=== PATIENT | female | born 1930 | race African-American/Black ===

== ENCOUNTER 2017-03-03 13:19 | Inpatient (IN) | payer BC, MEDICARE, OTHER ==
--- NOTE | 2017-03-03 14:26 | PDOC ---
History of Present Illness <Omar Nazario - Last Filed: 03/03/17 17:03> - General History Source: Patient Exam Limitations: No Limitations - History of Present Illness Initial Comments: 03/03/17 15:03 The patient is a 86 year old female, with a significant past medical history of hypertension, hyperlipidemia, diabetes, TIA, and GERD, who presents to the emergency department s/p mechanical fall earlier this afternoon. The patient reports she was in her kitchen when her knees gave out, and she landed on her right knee. Patient reports associated pain to the right knee and swelling. Patient states she is unable to stand on her leg secondary to pain. She denies any head trauma, LOC, headache, changes in vision, neck/back/hip pain. Patient reports a history of a right knee replacement. Patient is on a daily Aspirin. She denies any fever, chills, dizziness, lightheadedness, nausea, vomiting, changes in urination, or changes in bowel movements. She denies any recent travel or sick contacts. Allergies: NKDA Past Surgical History: Bilateral total knee replacements. Social History: Non smoker. No ETOH or recreational drug use. PCP: Dr. Youngblood <Aliya Kaur - Last Filed: 03/03/17 17:33> - General Chief Complaint: Injury Stated Complaint: FALL/LEG PAIN Time Seen by Provider: 03/03/17 14:25 Past History - Past Medical History Cardiac Disorders: Yes CVA: Yes ("TIAs") COPD: No CHF: No Diabetes: Yes (medications were discontinued by her primary care physician) GI Disorders: Yes (GERD) HTN: Yes Hypercholesterolemia: Yes - Surgical History Orthopedic Surgery: Yes (FRANCISCA.TOTAL KNEE PLACEMENT) - Immunization History Immunization Up to Date: Yes - Suicide/Smoking/Psychosocial Hx Smoking Status: No Smoking History: Smoker current status UNK Have you smoked in the past 12 months: No Number of Cigarettes Smoked Daily: 0 Hx Alcohol Use: No Drug/Substance Use Hx: No Substance Use Type: None <Omar Nazario - Last Filed: 03/03/17 17:03> <Aliya Kaur - Last Filed: 03/03/17 17:33> - Past Medical History Allergies/Adverse Reactions: Allergies Allergy/AdvReac Type Severity Reaction Status Date / Time No Known Allergies Allergy Verified 03/03/17 13:24 Home Medications: Ambulatory Orders Amlodipine Besylate 10 mg PO DAILY 03/03/17 Aspirin [Crystal Chewable] 81 mg PO DAILY 03/03/17 Furosemide 20 mg PO DAILY 03/03/17 Lisinopril [Prinivil -] 40 mg PO DAILY 03/03/17 Omeprazole 40 mg PO DAILY 03/03/17 Ranitidine [Zantac -] 150 mg PO BID 03/03/17 Review of Systems - Review of Systems Able to Perform ROS?: Yes Comments:: 03/03/17 15:03 GENERAL/CONSTITUTIONAL: No fever or chills. No weakness. HEAD, EYES, EARS, NOSE AND THROAT: No change in vision. No ear pain or discharge. No sore throat. CARDIOVASCULAR: No chest pain or shortness of breath. RESPIRATORY: No cough, wheezing, or hemoptysis. GASTROINTESTINAL: No nausea, vomiting, diarrhea or constipation. GENITOURINARY: No dysuria, frequency, or change in urination. MUSCULOSKELETAL: Yes right knee pain/swelling. No other joint or muscle swelling or pain. No neck or back pain. SKIN: No rash NEUROLOGIC: No headache, vertigo, loss of consciousness, or change in strength/ sensation. ENDOCRINE: No increased thirst. No abnormal weight change. HEMATOLOGIC/LYMPHATIC: No anemia, easy bleeding, or history of blood clots. ALLERGIC/IMMUNOLOGIC: No hives or skin allergy. <Aliya Kaur - Last Filed: 03/03/17 17:33> *Physical Exam - Vital Signs Last Vital Signs Temp Pulse Resp BP Pulse Ox 98.0 F 70 20 160/80 100 03/03/17 14:11 03/03/17 14:11 03/03/17 14:11 03/03/17 14:11 03/03/17 14:11 <Omar Nazario - Last Filed: 03/03/17 17:03> - Vital Signs Last Vital Signs Temp Pulse Resp BP Pulse Ox 98.0 F 70 20 160/80 100 03/03/17 14:11 03/03/17 14:11 03/03/17 14:11 03/03/17 14:11 03/03/17 14:11 - Physical Exam Comments: 03/03/17 15:04 GENERAL: Awake, alert, and fully oriented, in no acute distress HEAD: No signs of trauma EYES: PERRLA, EOMI, sclera anicteric, conjunctiva clear ENT: Auricles normal inspection, hearing grossly normal, nares patent, oropharynx clear without exudates. Moist mucosa NECK: Normal ROM, supple, no lymphadenopathy, JVD, or masses LUNGS: Breath sounds equal, clear to auscultation bilaterally. No wheezes, and no crackles HEART: Regular rate and rhythm, normal S1 and S2, no murmurs, rubs or gallops ABDOMEN: Soft, nontender, normoactive bowel sounds. No guarding, no rebound. No masses EXTREMITIES: Limited range of motion to right lower extremity secondary to pain. Moderate edema to the right knee. Normal range of motion and no edema to the remainder of the extremities. No clubbing or cyanosis. No cords, erythema, or tenderness NEUROLOGICAL: Cranial nerves II through XII grossly intact. Normal speech SKIN: Warm, Dry, normal turgor, no rashes or lesions noted. <Aliya Kaur - Last Filed: 03/03/17 17:33> Heart Score/ECG Review - ECG Intrepretation Comment:: 03/03/17 17:32 Vent Rate: 77 bpm IMPRESSION: Normal sinus rhythm. Nonspecific T wave abnormality. <Aliya Kaur - Last Filed: 03/03/17 17:33> ED Treatment Course - RADIOLOGY Radiograph Interpretation: 03/03/17 16:47 EXAM: Right femur/knee XR INTERPRETED BY: Dr. Moseley REVIEWED BY: Dr. Nazario IMPRESSION: Fractured distal femur at its junction with the knee prosthesias. X- ray of the right femur, 4 views. There is evidence of osteopenia. The right hip joint is intact. Fracture distal femur at the level of the superior margin of the anterior margin of the prosthesis with small bone fragments consistent with a comminuted fracture. There is significant posterior and medial displacement of the distal segment relative to the femoral shaft. On the lateral view, point of contact is less than half of the width of the distal femoral shaft. There is sigificant surrounding soft tissue swelling. Vascular calcifications are present in the right thigh. right knee replacement is seen <Aliya Kaur - Last Filed: 03/03/17 17:33> *DC/Admit/Observation/Transfer - Discharge Dispostion Admit: Yes - Attestations Physician Attestion: 12/04/17 14:26 I, Dr. Omar Nazario, attest that this document has been prepared under my direction and personally reviewed by me in its entirety. I further attest, that it accurately reflects all work, treatment, procedures and medical decision -making performed by me. <Omar Nazario - Last Filed: 03/03/17 17:03> - Attestations Scribe Attestion: 03/03/17 15:04 Documentation prepared by Aliya Kaur, acting as medical malpractice paralegal for Omar Nazario DO. <Aliya Kaur - Last Filed: 03/03/17 17:33> Diagnosis at time of Disposition: Knee fracture, right Atypical fracture of femur Qualifiers: Encounter type: initial encounter Qualified Code(s): M84.750A - Atypical femoral fracture, unspecified, initial encounter for fracture - Discharge Dispostion Condition at time of disposition: Improved - Patient Instructions - Post Discharge Activity
[2017-03-03] MEDS ORDERED: ONDANSETRON *ODT* 4 MG TABLET SL ONE (14:50)
[2017-03-03] MEDS ORDERED: ONDANSETRON *ODT* 4 MG TABLET ONE (15:16)
[2017-03-03 18:00] LABS: BASOPHIL 0.4 % (0-2.0); EOSINOPHIL 0.1 % (0-4.5); MCHC 32.9 g/dl (32.0-36.0); MEAN CELL VOLUME 88.1 fl (80-96); NEUTROPHILS 90.3 % (42.8-82.8); PLATELET COUNT 178 K/MM3 (134-434); RDW 16.6 % (11.6-15.6); WHITE BLOOD COUNT 7.5 K/mm3 (4.0-10.0)
[2017-03-03 20:20] LABS: ALBUMIN 3.6 g/dl (3.4-5.0); ANION GAP 7 (8-16); CALCIUM 8.5 mg/dL (8.5-10.1); CO2 26 mmol/L (21-32); CREATININE 2.2 mg/dL (0.55-1.02); GLUCOSE,RANDOM 136 mg/dL (74-106); SGOT/AST 12 U/L (15-37); TOT PROT 7.1 g/dl (6.4-8.2)
[2017-03-03 20:37] LABS: ALK PHOS 93 U/L (45-117); BILIRUBIN,TOTAL 0.2 mg/dL (0.2-1.0); SGPT/ALT 12 U/L (12-78)
--- NOTE | 2017-03-03 23:06 | HP ---
Admitting History and Physical - Primary Care Physician PCP: Love Arias - Admission History of Present Illness: 86 year old female, with a significant past medical history of hypertension, hyperlipidemia, diabetes, TIA, and GERD, who presents to the emergency department s/p mechanical fall earlier this afternoon. The patient reports she was in her kitchen when her knees gave out, and she landed on her right knee. Patient reports associated pain to the right knee and swelling. Patient states she is unable to stand on her leg secondary to pain. She denies any head trauma , LOC, headache, changes in vision, neck/back/hip pain. Patient reports a history of a right knee replacement. Patient is on a daily Aspirin. She denies any fever, chills, dizziness, lightheadedness, nausea, vomiting, changes in urination, or changes in bowel movements. She denies any recent travel or sick contacts. 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, Vertigo Cardiovascular: Yes: CAD, HTN, Hyperlipdemia Heme/Onc: Yes: B12 Deficiency Endocrine: Yes: Diabetes Mellitus - Smoking History Smoking history: Smoker current status UNK Have you smoked in the past 12 months: No Aproximately how many cigarettes per day: 0 - Alcohol/Substance Use Hx Alcohol Use: No - Social History ADL: Independent History of Recent Travel: No Home Medications - Allergies Allergies/Adverse Reactions: Allergies Allergy/AdvReac Type Severity Reaction Status Date / Time No Known Allergies Allergy Verified 03/03/17 13:24 - Home Medications Home Medications: Ambulatory Orders Amlodipine Besylate 10 mg PO DAILY 03/03/17 Aspirin [Crystal Chewable] 81 mg PO DAILY 03/03/17 Furosemide 20 mg PO DAILY 03/03/17 Lisinopril [Prinivil -] 40 mg PO DAILY 03/03/17 Omeprazole 40 mg PO DAILY 03/03/17 Ranitidine [Zantac -] 150 mg PO BID 03/03/17 Physical Examination Vital Signs: Vital Signs Temperature 98.0 F 03/03/17 19:20 Pulse Rate 88 03/03/17 19:20 Respiratory Rate 18 03/03/17 19:20 Blood Pressure 140/80 03/03/17 19:20 O2 Sat by Pulse Oximetry (%) 98 03/03/17 19:20 Constitutional: Yes: No Distress HENT: Yes: Atraumatic Neck: Yes: Supple Cardiovascular: Yes: Regular Rate and Rhythm Respiratory: Yes: CTA Bilaterally Gastrointestinal: Yes: Normal Bowel Sounds Neurological: Yes: Alert, Oriented Labs: CBC, BMP 03/03/17 17:44 03/03/17 19:31 Problem List - Problems (1) Atypical fracture of femur Assessment/Plan: ortho consult prn pain meds Code(s): M84.750A - ATYPICAL FEMORAL FRACTURE, UNSPECIFIED, INIT Qualifiers: Encounter type: initial encounter Qualified Code(s): M84.750A - Atypical femoral fracture, unspecified, initial encounter for fracture (2) Knee fracture, right Code(s): [id number] - Assessment/Plan Laboratory Tests 03/03/17 03/03/17 03/03/17 17:44 17:44 17:44 WBC 7.5 RBC 3.38 L Hgb 9.8 L Hct 29.8 L MCV 88.1 MCH 29.0 MCHC 32.9 RDW 16.6 H D Plt Count 178 D MPV 9.0 D Neutrophils % 90.3 H Lymphocytes % 5.4 L D Monocytes % 3.8 Eosinophils % 0.1 D Basophils % 0.4 PT with INR Cancelled INR Cancelled Sodium Cancelled Potassium Cancelled Chloride Cancelled Carbon Dioxide Cancelled Anion Gap Cancelled BUN Cancelled Creatinine Cancelled Creat Clearance w eGFR Cancelled Random Glucose Cancelled Calcium Cancelled Total Bilirubin Cancelled AST Cancelled ALT Cancelled Alkaline Phosphatase Cancelled Total Protein Cancelled Albumin Cancelled 03/03/17 19:31 WBC RBC Hgb Hct MCV MCH MCHC RDW Plt Count MPV Neutrophils % Lymphocytes % Monocytes % Eosinophils % Basophils % PT with INR INR Sodium 140 Potassium 4.9 Chloride 107 Carbon Dioxide 26 Anion Gap 7 L BUN 41 H Creatinine 2.2 H Creat Clearance w eGFR 21.26 Random Glucose 136 H Calcium 8.5 Total Bilirubin 0.2 D AST 12 L ALT 12 D Alkaline Phosphatase 93 D Total Protein 7.1 D Albumin 3.6 D Active Medications Generic Name Dose Route Start Last Admin Trade Name Freq PRN Reason Stop Dose Admin Amlodipine Besylate 10 mg 03/05/17 10:00 Norvasc - PO DAILY IGGY Aspirin 325 mg 03/05/17 08:00 Asa - PO DAILY@0800 IGGY Fentanyl 25 mcg 03/04/17 16:49 Sublimaze Injection - IVPUSH [id number] PRN PAIN Hydromorphone HCl 1 mg 03/04/17 17:08 Dilaudid Injection - IVPB Q3H PRN PAIN Cefazolin Sodium 1 gm in 10 mls @ 120 mls/hr 03/04/17 23:00 Ancef - IVPUSH 03/05/17 11:04 Q12H IGGY Lactated Ringer's 1,000 mls @ 75 mls/hr 03/04/17 17:00 Lactated Ringers Solution IV ASDIR IGGY Dextrose/Sodium Chloride 1,000 mls @ 75 mls/hr 03/04/17 17:08 D5-1/2ns - IV ASDIR IGGY Lisinopril 40 mg 03/05/17 10:00 Prinivil PO DAILY IGGY Ondansetron HCl 4 mg 03/04/17 16:49 Zofran Injection IVPUSH Q6H PRN NAUSEA AND/OR VOMITING Oxycodone HCl 5 mg 03/04/17 16:49 03/04/17 19:59 Roxicodone - PO 5 mg Q4H PRN Administration MILD PAIN
[2017-03-03] MEDS ORDERED: HYDROmorphone HCL CARPU-JECT 1 MG/1 ML DISP.SYRIN IVPB PRN (23:09)
[2017-03-03] MEDS ORDERED: DEXTROSE 5%-0.45% SALINE 1,000 ML IV SCH (23:15)
[2017-03-03] MEDS: HYDROmorphone HCL CARPU-JECT 2 MG/1 ML DISP.SYRIN IVPB PRN (23:44)
[2017-03-04 00:26] VITALS: BMI 26.9
[2017-03-04] MEDS: HYDROmorphone HCL CARPU-JECT 2 MG/1 ML DISP.SYRIN IVPB PRN (05:37)
--- NOTE | 2017-03-04 08:21 | PN ---
Progress Note (short form) - Note Progress Note: Pt seen and examined. She is an 86 year old female pt about 15 years s/p Right TKR, and 2 days s/p fall. She was unable to ambulate. Came in through the ER. PE RLE in knee immobilizer + mod swelling around R knee No open component, no bleeding RLE grossly NVI + F/E ROM right toes, foot, ankle Xrays Show a very distal femoral periprosthetic femur fracture Imp 86 yo F with a right distal femur periprosthetic fracture Rec Medical clearance, Cardiac clearance NPO To the OR today for a right knee revision TKR, by Dr Topete
[2017-03-04] MEDS ORDERED: HEPARIN NA (PORCINE) 5,000 UNITS/ML 1ML VIAL SQ SCH (10:00)
[2017-03-04] MEDS ORDERED: ASPIRIN 81 MG CHEWABLE TABLETS PO SCH (10:00)
[2017-03-04] MEDS ORDERED: amLODIPine BESYLATE 10 MG TABLET (FP) PO SCH (10:00)
[2017-03-04] MEDS ORDERED: LISINOPRIL 20 MG TABLET (FP) PO SCH (10:00)
--- NOTE | 2017-03-04 11:57 | CON.CARD ---
Consult Consult Specialty:: Cardiology Referred by:: Dr. Arias Reason for Consultation:: Cardiac evaluation and for cardiac clearance prior to orthopedic surgery - History of Present Illness Chief Complaint: Status post fall resulting in batool-prosthetic femoral fracture (right) History of Present Illness: Patient is an 86 year old female with underlying history of hypertension, hypercholesterolemia, diabetes mellitus, TIA and GERD who presents after a mechanical fall resulting in right batool-prosthetic femoral fracture. She denies LOC. she was in her kitchen and when she tried to turn, her knees gave out and she fell resulting in the injury. 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 She denies chest pain, shortness of breath or palpitations. She denies paroxysmal nocturnal dyspnea or orthopnea. She denies fever or chills. She denies headache or lightheadedness. She denies nausea, vomiting, diarrhea or abdominal pain. Cardiology consultation was called for further evaluation and for cardiac clearance. 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, Vertigo Cardio/Vascular: Yes: CAD, HTN, Hyperlipdemia Endocrine: Yes: Diabetes Mellitus - Past Surgical History Past Surgical History: Yes: Joint Replacement (Bilateral knee surgery) Additional Surgical History: States neurosurgery for aneurysm in the past - Alcohol/Substance Use Hx Alcohol Use: No - Smoking History Smoking history: Never smoked Have you smoked in the past 12 months: No Aproximately how many cigarettes per day: 0 - Social History ADL: Independent History of Recent Travel: No Home Medications - Allergies Allergies/Adverse Reactions: Allergies Allergy/AdvReac Type Severity Reaction Status Date / Time No Known Allergies Allergy Verified 03/03/17 13:24 - Home Medications Home Medications: Ambulatory Orders Amlodipine Besylate 10 mg PO DAILY 03/03/17 Aspirin [Crystal Chewable] 81 mg PO DAILY 03/03/17 Furosemide 20 mg PO DAILY 03/03/17 Lisinopril [Prinivil -] 40 mg PO DAILY 03/03/17 Omeprazole 40 mg PO DAILY 03/03/17 Ranitidine [Zantac -] 150 mg PO BID 03/03/17 Family Disease History - Family Disease History Other Family History: History of HTN and DM Review of Systems - Review of Systems Constitutional: denies: Chills, Fever Cardiovascular: denies: Chest Pain, Palpitations, Shortness of Breath Respiratory: denies: Cough, Hemoptysis, Orthopnea, PND, SOB, SOB on Exertion Gastrointestinal: denies: Abdominal Pain, Constipation, Diarrhea, Melena, Nausea , Rectal Bleeding, Vomiting Genitourinary: denies: Dysuria, Hematuria Musculoskeletal: reports: Joint Pain, Joint Swelling Neurological: denies: Dizziness, Headache, Seizure, Syncope Psychiatric: reports: No Symptoms Vital Signs: Vital Signs Temperature 99.3 F 03/04/17 05:43 Pulse Rate 83 03/04/17 05:43 Respiratory Rate 21 03/04/17 05:43 Blood Pressure 118/69 03/04/17 05:43 O2 Sat by Pulse Oximetry (%) 98 03/03/17 19:20 Neck: Yes: Supple Respiratory: Yes: CTA Bilaterally Gastrointestinal: Yes: Normal Bowel Sounds, Soft. No: Tenderness Cardiovascular: Yes: Regular Rate and Rhythm JVD: No Carotid Bruit: No PMI: Non-Displaced Heart Sounds: Yes: S1, S2. No: Gallop Murmur: Yes: Systolic Murmur, Grade 1 Extremities: Yes: Erythema Edema: No - Other Data Labs, Other Data: CBC, BMP 03/03/17 17:44 03/03/17 19:31 Laboratory Results - last 24 hr 03/03/17 03/03/17 03/03/17 17:44 17:44 17:44 WBC 7.5 RBC 3.38 L Hgb 9.8 L Hct 29.8 L MCV 88.1 MCH 29.0 MCHC 32.9 RDW 16.6 H D Plt Count 178 D MPV 9.0 D Neutrophils % 90.3 H Lymphocytes % 5.4 L D Monocytes % 3.8 Eosinophils % 0.1 D Basophils % 0.4 PT with INR Cancelled INR Cancelled Sodium Cancelled Potassium Cancelled Chloride Cancelled Carbon Dioxide Cancelled Anion Gap Cancelled BUN Cancelled Creatinine Cancelled Creat Clearance w eGFR Cancelled Random Glucose Cancelled Calcium Cancelled Total Bilirubin Cancelled AST Cancelled ALT Cancelled Alkaline Phosphatase Cancelled Total Protein Cancelled Albumin Cancelled 03/03/17 19:31 WBC RBC Hgb Hct MCV MCH MCHC RDW Plt Count MPV Neutrophils % Lymphocytes % Monocytes % Eosinophils % Basophils % PT with INR INR Sodium 140 Potassium 4.9 Chloride 107 Carbon Dioxide 26 Anion Gap 7 L BUN 41 H Creatinine 2.2 H Creat Clearance w eGFR 21.26 Random Glucose 136 H Calcium 8.5 Total Bilirubin 0.2 D AST 12 L ALT 12 D Alkaline Phosphatase 93 D Total Protein 7.1 D Albumin 3.6 D Normal sinus rhythm with nonspecific T abnormality Echo: Pending Imaging - Results Chest X-ray: Report Reviewed (Cardiomegaly) X-ray: Report Reviewed (Hip Xray - right distal femur batool-prosthetic fracture) EKG: Report Reviewed Problem List - Problems (1) Preoperative cardiovascular examination Code(s): Z01.810 - ENCOUNTER FOR PREPROCEDURAL CARDIOVASCULAR EXAMINATION (2) HTN (hypertension) Code(s): I10 - ESSENTIAL (PRIMARY) HYPERTENSION Qualifiers: Hypertension type: essential hypertension Qualified Code(s): I10 - Essential (primary) hypertension (3) Hypercholesterolemia Code(s): E78.00 - PURE HYPERCHOLESTEROLEMIA, UNSPECIFIED (4) Diabetes mellitus Code(s): E11.9 - TYPE 2 DIABETES MELLITUS WITHOUT COMPLICATIONS Qualifiers: Diabetes mellitus type: type 2 Diabetes mellitus complication status: without complication Diabetes mellitus terminal worker insulin use: without skilled nursing use Qualified Code(s): E11.9 - Type 2 diabetes mellitus without complications (5) Atypical fracture of femur Code(s): M84.750A - ATYPICAL FEMORAL FRACTURE, UNSPECIFIED, INIT Qualifiers: Encounter type: initial encounter Qualified Code(s): M84.750A - Atypical femoral fracture, unspecified, initial encounter for fracture (6) TIA (transient ischemic attack) Code(s): G45.9 - TRANSIENT CEREBRAL ISCHEMIC ATTACK, UNSPECIFIED Qualifiers: Transient cerebral ischemia type: unspecified Qualified Code(s): G45.9 - Transient cerebral ischemic attack, unspecified Assessment/Plan 1. Batool-prosthetic femoral fracture s/p mechanical fall, no LOC 2. Hypertension 3. Hypercholesterolemia 4. Diabetes mellitus 5. Cerebrovascular disease PLAN: 1. Transthoracic echocardiography to assess LV/RV and valvular function ( preliminary reviewed normal LV systolic function, presence of TR and aortic valve sclerosis) Official report to follow 2. Patient may proceed with planned hip surgery. There is no absolute contraindication in proceeding with surgery in view of absence of ischemic symptoms, decompensated congestive heart failure or malignant arrhythmia. Post op cardiac enzuymes and ECG recommended 3. Hold ASA until after surgery 4. Continue Amlodipine and Prinivil as tolerated Thank you for the consultation. Will follow with you. Further plans are to follow Jamil Bhardwaj MD
[2017-03-04] MEDS ORDERED: ceFAZolin SODIUM 1 GM VIAL ONE ×2 (13:15→14:40)
[2017-03-04] MEDS ORDERED: BUPIVACAINE LIPOSOME/PF (EXPAREL) 266 MG/20 ML VIAL NR ONE ×2 (13:30→17:08)
[2017-03-04] MEDS ORDERED: BUPIVACAINE HCL/PF 0.25% (2.5MG/ML) 10 ML VIAL ONE (13:47)
[2017-03-04] MEDS ORDERED: MIDAZOLAM HCL 2 MG/2 ML SINGLE DOSE VIAL ONE ×3 (13:51→13:53)
[2017-03-04 14:14] LABS: INR 1.05 (0.82-1.09); PROTHROMBIN TIME (PATIENT) 11.9 SEC (9.98-11.88)
[2017-03-04] MEDS ORDERED: BUPIVACAINE HCL/PF 0.5% (5MG/ML) 10 ML VIAL ONE (14:16)
[2017-03-04] MEDS ORDERED: ceFAZolin SODIUM 1 GM VIAL IVPB ONE (14:36)
[2017-03-04] MEDS ORDERED: VANCOMYCIN 1,000 MG VIAL (RESTRICTED TO ID ONLY) ONE (15:54)
--- NOTE | 2017-03-04 16:32 | OP ---
Operative Note - Note: Operative Date: 03/04/17 ([facility]) Pre-Operative Diagnosis: right periprosthetic distal femur fx Operation: right revision TKR Post-Operative Diagnosis: Same as Pre-op Surgeon: Steve Topete Box Feeder: Ace Logan Anesthesiologist/LICSW: Yuliet Sanford MD Anesthesia: Spinal, Local Specimens Removed: femur and tibial component, bone fragments Estimated Blood Loss (mls): 300 Operative Report Dictated: Yes
[2017-03-04] MEDS ORDERED: ONDANSETRON 4 MG/2 ML VIAL IVPUSH PRN (16:49)
[2017-03-04] MEDS ORDERED: LACTATED RINGERS SOLUTION 1,000 ML IV SCH (17:00)
[2017-03-04] MEDS ORDERED: DEXTROSE 5%-0.45% SALINE 1,000 ML IV SCH (17:08)
[2017-03-04] MEDS ORDERED: HYDROmorphone HCL CARPU-JECT 2 MG/1 ML DISP.SYRIN IVPB PRN (17:08)
[2017-03-04] MEDS: oxyCODONE HCL 5 MG TABLET PO PRN (19:59)
--- NOTE | 2017-03-04 20:52 | PN ---
Progress Note, Physician History of Present Illness: feeling good - Current Medication List Current Medications: Active Medications Amlodipine Besylate (Norvasc -) 10 mg PO DAILY [facility] Aspirin (Asa -) 325 mg PO DAILY@0800 [facility] Fentanyl (Sublimaze Injection -) 25 mcg IVPUSH [id number] PRN PRN Reason: PAIN Hydromorphone HCl (Dilaudid Injection -) 1 mg IVPB Q3H PRN PRN Reason: PAIN Cefazolin Sodium (Ancef -) 1 gm in 10 mls @ 120 mls/hr IVPUSH Q12H [facility] Stop: 03/05/17 11:04 Lactated Ringer's (Lactated Ringers Solution) 1,000 mls @ 75 mls/hr IV ASDIR [facility] Dextrose/Sodium Chloride (D5-1/2ns -) 1,000 mls @ 75 mls/hr IV ASDIR [facility] Lisinopril (Prinivil) 40 mg PO DAILY [facility] Ondansetron HCl (Zofran Injection) 4 mg IVPUSH Q6H PRN PRN Reason: NAUSEA AND/OR VOMITING Oxycodone HCl (Roxicodone -) 5 mg PO Q4H PRN PRN Reason: MILD PAIN Last Admin: 03/04/17 19:59 Dose: 5 mg - Objective Vital Signs: Vital Signs Temperature 98.4 F 03/04/17 18:47 Pulse Rate 78 03/04/17 18:47 Respiratory Rate 20 03/04/17 20:33 Blood Pressure 133/69 03/04/17 18:47 O2 Sat by Pulse Oximetry (%) 100 03/04/17 20:33 Constitutional: Yes: Calm HENT: Yes: Atraumatic Neck: Yes: Supple Cardiovascular: Yes: Regular Rate and Rhythm Respiratory: Yes: CTA Bilaterally Gastrointestinal: Yes: Normal Bowel Sounds Extremities: Yes: Other (rlex in dressing) Edema: RLE: 1+ Neurological: Yes: Alert, Oriented Labs: CBC, BMP 03/03/17 17:44 03/03/17 19:31 INR, PTT INR 1.05 (0.82-1.09) 03/04/17 13:30 Problem List - Problems (1) Atypical fracture of femur Assessment/Plan: ortho consult prn pain meds s/p surgery snf placement Code(s): M84.750A - ATYPICAL FEMORAL FRACTURE, UNSPECIFIED, INIT Qualifiers: Encounter type: subsequent encounter (2) Knee fracture, right Code(s): [id number] -
[2017-03-04] MEDS ORDERED: CEFAZOLIN 2 GM in DEXTROSE 5%-WATER - 50 ML IVPB SCH (23:00)
[2017-03-04] MEDS: CEFAZOLIN 1 GM PUSH 1 GM/10 ML DISP.SYRIN IVPUSH SCH (23:27)
[2017-03-05] MEDS: oxyCODONE HCL 5 MG TABLET PO PRN ×3 (05:14→14:29)
--- NOTE | 2017-03-05 07:53 | EKG ---
Test Reason : Blood Pressure : / mmHG Vent. Rate : 077 BPM Atrial Rate : 077 BPM P-R Int : 154 ms QRS Dur : 088 ms QT Int : 376 ms P-R-T Axes : -23 046 059 degrees QTc Int : 425 ms NORMAL SINUS RHYTHM NONSPECIFIC T WAVE ABNORMALITY ABNORMAL ECG WHEN COMPARED WITH ECG OF 03-MAR-2017 14:19, NO SIGNIFICANT CHANGE WAS FOUND Confirmed by MD Marte Daniel ([id number]) on 03/04/2017 2:53:39 PM Also confirmed by MD Marte Daniel ([id number]), news video editor NICANOR AMATO ([id number]) on 03/05/2017 7:53:12 AM Referred By: Confirmed By:Nicanor Marte MD
[2017-03-05] MEDS ORDERED: ASPIRIN 325 MG TABLET PO SCH (08:00)
[2017-03-05 08:18] LABS: BASOPHIL 0.2 % (0-2.0); EOSINOPHIL 0.9 % (0-4.5); MCH 28.9 pg (25.7-33.7); MCHC 33.3 g/dl (32.0-36.0); MEAN CELL VOLUME 86.9 fl (80-96); MEAN PLT VOLUME 8.6 fl (7.5-11.1); NEUTROPHILS 87.5 % (42.8-82.8); PLATELET COUNT 94 K/MM3 (134-434); RDW 16.2 % (11.6-15.6); WHITE BLOOD COUNT 11.4 K/mm3 (4.0-10.0)
[2017-03-05 08:31] LABS: ALBUMIN 2.4 g/dl (3.4-5.0); ANION GAP 9 (8-16); CALCIUM 7.9 mg/dL (8.5-10.1); CO2 22 mmol/L (21-32); GLUCOSE,RANDOM 134 mg/dL (74-106); SGPT/ALT 9 U/L (12-78)
[2017-03-05 08:37] LABS: ALK PHOS 58 U/L (45-117); BILIRUBIN,TOTAL 0.6 mg/dL (0.2-1.0); CREATININE 2.2 mg/dL (0.55-1.02); SGOT/AST 10 U/L (15-37); TOT PROT 5.1 g/dl (6.4-8.2)
--- NOTE | 2017-03-05 10:02 | PN ---
Progress Note (short form) - Note Progress Note: AVSS COMFORTABLE BANDAGES DRY AND INTACT CALF SOFT AND NT NVI HCT= 21 IMP DOING WELL BUT LOW HCT DUE TO POST OP ANEMIA PLAN: TRANSFUSE 2 UNITS PRBCS EACH OVER 3 HOURS, PT
[2017-03-05] MEDS ORDERED: PT OWN MED DRAWER 7, Y5N ONE ×2 (10:10→14:38)
[2017-03-05] MEDS: ASPIRIN 325 MG TABLET PO SCH (10:12)
[2017-03-05] MEDS: amLODIPine BESYLATE 10 MG TABLET (FP) PO SCH (10:13)
[2017-03-05] MEDS: LISINOPRIL 20 MG TABLET (FP) PO SCH (10:13)
[2017-03-05] MEDS: CEFAZOLIN 1 GM PUSH 1 GM/10 ML DISP.SYRIN IVPUSH SCH (10:58)
--- NOTE | 2017-03-05 12:56 | PN ---
Progress Note, Physician History of Present Illness: Reports post-op incisional discomfort, denies chest pain or dyspnea. - Current Medication List Current Medications: Active Medications Amlodipine Besylate (Norvasc -) 10 mg PO DAILY [facility] Last Admin: 03/05/17 10:13 Dose: 10 mg Aspirin (Asa -) 325 mg PO DAILY@0800 [facility] Last Admin: 03/05/17 10:12 Dose: 325 mg Fentanyl (Sublimaze Injection -) 25 mcg IVPUSH [id number] PRN PRN Reason: PAIN Hydromorphone HCl (Dilaudid Injection -) 1 mg IVPB Q3H PRN PRN Reason: PAIN Lactated Ringer's (Lactated Ringers Solution) 1,000 mls @ 75 mls/hr IV ASDIR [facility] Dextrose/Sodium Chloride (D5-1/2ns -) 1,000 mls @ 75 mls/hr IV ASDIR [facility] Last Admin: 03/04/17 22:00 Dose: 75 mls/hr Lisinopril (Prinivil) 40 mg PO DAILY [facility] Last Admin: 03/05/17 10:13 Dose: 40 mg Ondansetron HCl (Zofran Injection) 4 mg IVPUSH Q6H PRN PRN Reason: NAUSEA AND/OR VOMITING Oxycodone HCl (Roxicodone -) 5 mg PO Q4H PRN PRN Reason: MILD PAIN Last Admin: 03/05/17 10:21 Dose: 5 mg - Objective Vital Signs: Vital Signs Temperature 100.3 F H 03/05/17 05:48 Pulse Rate 87 03/05/17 05:48 Respiratory Rate 18 03/05/17 05:48 Blood Pressure 113/64 03/05/17 05:48 O2 Sat by Pulse Oximetry (%) 100 03/04/17 20:33 Constitutional: Yes: No Distress, Calm Neck: Yes: Supple Cardiovascular: Yes: Regular Rate and Rhythm, Murmur (2/6 SM) Respiratory: Yes: Regular, Diminished Gastrointestinal: Yes: Normal Bowel Sounds, Soft Edema: No Labs: CBC, BMP 03/05/17 07:40 03/05/17 07:40 INR, PTT INR 1.05 (0.82-1.09) 03/04/17 13:30 Problem List - Problems (1) Status post revision of total knee replacement Code(s): Z96.659 - PRESENCE OF UNSPECIFIED ARTIFICIAL KNEE JOINT Qualifiers: Laterality: right Qualified Code(s): Z96.651 - Presence of right artificial knee joint (2) Atypical fracture of femur Code(s): M84.750A - ATYPICAL FEMORAL FRACTURE, UNSPECIFIED, INIT Qualifiers: Encounter type: subsequent encounter (3) Diabetes mellitus Code(s): E11.9 - TYPE 2 DIABETES MELLITUS WITHOUT COMPLICATIONS Qualifiers: Diabetes mellitus type: type 2 Diabetes mellitus complication status: without complication Diabetes mellitus roasterman insulin use: without roasterman use Qualified Code(s): E11.9 - Type 2 diabetes mellitus without complications (4) HTN (hypertension) Code(s): I10 - ESSENTIAL (PRIMARY) HYPERTENSION Qualifiers: Hypertension type: essential hypertension Qualified Code(s): I10 - Essential (primary) hypertension (5) Hypercholesterolemia Code(s): E78.00 - PURE HYPERCHOLESTEROLEMIA, UNSPECIFIED (6) TIA (transient ischemic attack) Code(s): G45.9 - TRANSIENT CEREBRAL ISCHEMIC ATTACK, UNSPECIFIED Qualifiers: Transient cerebral ischemia type: unspecified Qualified Code(s): G45.9 - Transient cerebral ischemic attack, unspecified (7) Chronic kidney disease (CKD) Code(s): N18.9 - CHRONIC KIDNEY DISEASE, UNSPECIFIED (8) Anemia Code(s): D64.9 - ANEMIA, UNSPECIFIED Qualifiers: Other causes of anemia: acute posthemorrhagic Assessment/Plan 1. Right Periprosthetic distal femoral fracture s/p mechanical fall s/p right revision TKR 2. Hypertension 3. Hypercholesterolemia 4. Diabetes mellitus 5. Cerebrovascular disease 6. Post-op anemia 7. CKD PLAN: 1. Transthoracic echocardiography to assess LV/RV and valvular function ( preliminary reviewed normal LV systolic function, presence of TR and aortic valve sclerosis) Official report to follow 2. Transfuse and monitor Hgb 3. Continue Amlodipine 10 qd, Prinivil 40 qd and ASA 325 qd with caution 4. DVT prophylaxis
--- NOTE | 2017-03-05 13:27 | OP ---
DATE OF OPERATION: 03/04/2017 PREOPERATIVE DIAGNOSIS: Comminuted distal supracondylar femur fracture above a total knee replacement. POSTOPERATIVE DIAGNOSIS: Comminuted distal supracondylar femur fracture above a total knee replacement. PROCEDURE: Revision right total knee replacement with a distal femoral replacement. SURGICAL ATTENDING: Steve Topete MD ADVERTISING EXECUTIVE: ELISABET Menchaca ANESTHESIA: Spinal. CLOSURE: A GRMS system from [employer] with a standard body, a standard tibial tray with a 16 insert, No. 1 Vicryl to fascia, 0 and 2-0 for subcutaneous, vernell for skin. ESTIMATED BLOOD LOSS: 200 mL. COMPLICATIONS: None. CONDITION: To recovery room in stable condition. DESCRIPTION OF PROCEDURE: The patient was taken to the operating room on March 04, 2017. Spinal anesthesia was administered by the anesthesiologist. IV Keflex was administered prophylactically prior to the case as well as TXA. A well-padded pneumatic tourniquet was placed on the right proximal thigh. The right lower extremity was prepped and draped in the usual sterile fashion. The leg was exsanguinated with an Esmarch bandage. The tourniquet was then inflated to 300 mmHg. Utilizing the previous incision beginning more proximally and distally, the knee was opened down to the level of the extensor mechanism, which was sufficient to allow me to perform the procedure. Medial parapatellar arthrotomy was then performed leaving a cuff of tissue on the patella for later closure. The patella was inverted, and the knee was flexed up. The total knee replacement femoral component was completely loose using subperiosteal dissection. The entire distal femur was removed. There were lots of comminuted fragments throughout. Each one was individually grabbed with a [place]ia and then was periosteally dissected from the soft tissue. The distal femur was osteotomized to the lowest level possible getting rid of the entire fracture and fracture cracks in the femoral shaft. The intramedullary canal was reamed up until a 17 reamer. It was decided to use a 15 intramedullary felipe. A trial reduction with a 15 felipe and a standard body achieved good soft tissue tensioning. Next, our attention was directed to the tibia. Osteotomes were used right underneath the tibial base plate freeing it up from its underlying bone and then the entire tibial tray was extracted from the tibial bone. A saw was used to freshened up the residual bone. Intramedullary reaming was reamed until an 18 reamer passed a trial with a standard tray with a 16 intramedullary reamer was placed with appropriate external rotation. A trial reduction with 16 polyethylene was performed. Excellent soft tissue tensioning. The knee was taken through a range of motion. Had excellent excursion. The patella was cleaned but was found to be not worn and was left in situ as it was stable as well. The patella tracked well with the trial components. The trial components were all removed. Cement restrictors were placed up and down the canals. The knee was post antibiotic irrigated. The real components were then cemented using modern generation cement technique with antibiotic cement and the appropriate external rotation. After the cement was hardened, the knee was thoroughly inspected to remove all excess cement. The polyethylene was clipped in it as were the hinge pieces, and the knee was assembled. Again, knee went through a full range of motion with good stability and good tracking of the patella. The knee was post antibiotic irrigated and then dried. Vancomycin powder was placed into the knee joint. The medial parapatellar incision was then closed using No. 1 Vicryl, 0 and 2-0 for subcutaneous, 3-0 Monocryl subcuticular, and skin glue for skin. Sterile pressure dressing was applied. The patient was awakened from anesthesia and transferred to the recovery room in stable condition with no complications. Ben [id number]
--- NOTE | 2017-03-05 15:43 | PN ---
Progress Note, Physician Chief Complaint: Pt. pain controlled with adductor canal block and oral meds, no anesthesia complaints. - Current Medication List Current Medications: Active Medications Amlodipine Besylate (Norvasc -) 10 mg PO DAILY [facility] Last Admin: 03/05/17 10:13 Dose: 10 mg Aspirin (Asa -) 325 mg PO DAILY@0800 [facility] Last Admin: 03/05/17 10:12 Dose: 325 mg Fentanyl (Sublimaze Injection -) 25 mcg IVPUSH [id number] PRN PRN Reason: PAIN Hydromorphone HCl (Dilaudid Injection -) 1 mg IVPB Q3H PRN PRN Reason: PAIN Lactated Ringer's (Lactated Ringers Solution) 1,000 mls @ 75 mls/hr IV ASDIR [facility] Dextrose/Sodium Chloride (D5-1/2ns -) 1,000 mls @ 75 mls/hr IV ASDIR [facility] Last Admin: 03/04/17 22:00 Dose: 75 mls/hr Lisinopril (Prinivil) 40 mg PO DAILY [facility] Last Admin: 03/05/17 10:13 Dose: 40 mg Ondansetron HCl (Zofran Injection) 4 mg IVPUSH Q6H PRN PRN Reason: NAUSEA AND/OR VOMITING Oxycodone HCl (Roxicodone -) 5 mg PO Q4H PRN PRN Reason: MILD PAIN Last Admin: 03/05/17 14:29 Dose: 5 mg - Objective Vital Signs: Vital Signs Temperature 98.9 F 03/05/17 14:00 Pulse Rate 82 03/05/17 09:00 Respiratory Rate 18 03/05/17 09:00 Blood Pressure 122/82 03/05/17 09:00 O2 Sat by Pulse Oximetry (%) 100 03/04/17 20:33 Constitutional: Yes: Well Nourished, No Distress, Calm Musculoskeletal: Yes: WNL Neurological: Yes: WNL, Alert, Oriented ...Motor Strength: WNL Labs: CBC, BMP 03/05/17 07:40 03/05/17 07:40 INR, PTT INR 1.05 (0.82-1.09) 03/04/17 13:30 Assessment/Plan POD#1 s/p Right TKA under spinal with adductor canal block. Doing well. D/C from anesthesia care.
--- NOTE | 2017-03-05 18:59 | PN ---
Progress Note, Physician History of Present Illness: feeling good - Current Medication List Current Medications: Active Medications Amlodipine Besylate (Norvasc -) 10 mg PO DAILY [facility] Last Admin: 03/05/17 10:13 Dose: 10 mg Aspirin (Asa -) 325 mg PO DAILY@0800 [facility] Last Admin: 03/05/17 10:12 Dose: 325 mg Fentanyl (Sublimaze Injection -) 25 mcg IVPUSH [id number] PRN PRN Reason: PAIN Hydromorphone HCl (Dilaudid Injection -) 1 mg IVPB Q3H PRN PRN Reason: PAIN Lactated Ringer's (Lactated Ringers Solution) 1,000 mls @ 75 mls/hr IV ASDIR [facility] Dextrose/Sodium Chloride (D5-1/2ns -) 1,000 mls @ 75 mls/hr IV ASDIR [facility] Last Admin: 03/04/17 22:00 Dose: 75 mls/hr Lisinopril (Prinivil) 40 mg PO DAILY [facility] Last Admin: 03/05/17 10:13 Dose: 40 mg Ondansetron HCl (Zofran Injection) 4 mg IVPUSH Q6H PRN PRN Reason: NAUSEA AND/OR VOMITING Oxycodone HCl (Roxicodone -) 5 mg PO Q4H PRN PRN Reason: MILD PAIN Last Admin: 03/05/17 14:29 Dose: 5 mg - Objective Vital Signs: Vital Signs Temperature 98.9 F 03/05/17 14:00 Pulse Rate 82 03/05/17 09:00 Respiratory Rate 18 03/05/17 09:00 Blood Pressure 122/82 03/05/17 09:00 O2 Sat by Pulse Oximetry (%) 100 03/04/17 20:33 Constitutional: Yes: No Distress HENT: Yes: Atraumatic Cardiovascular: Yes: Regular Rate and Rhythm Respiratory: Yes: CTA Bilaterally Gastrointestinal: Yes: Normal Bowel Sounds Extremities: Yes: Other (rlex in dressing/cast) Neurological: Yes: Alert, Oriented Labs: CBC, BMP 03/05/17 07:40 03/05/17 07:40 INR, PTT INR 1.05 (0.82-1.09) 03/04/17 13:30 Problem List - Problems (1) Atypical fracture of femur Assessment/Plan: ortho consult prn pain meds s/p surgery snf placement Code(s): M84.750A - ATYPICAL FEMORAL FRACTURE, UNSPECIFIED, INIT Qualifiers: Encounter type: subsequent encounter (2) Knee fracture, right Code(s): [id number] - (3) Leukocytosis (leucocytosis) Assessment/Plan: will check ua could be post surgical elevation Code(s): D72.829 - ELEVATED WHITE BLOOD CELL COUNT, UNSPECIFIED (4) Chronic kidney disease (CKD) Code(s): N18.9 - CHRONIC KIDNEY DISEASE, UNSPECIFIED (5) Diabetes mellitus Code(s): E11.9 - TYPE 2 DIABETES MELLITUS WITHOUT COMPLICATIONS Qualifiers: Diabetes mellitus type: type 2 Diabetes mellitus complication status: without complication Diabetes mellitus intermediate school teacher insulin use: without intermediate school teacher use Qualified Code(s): E11.9 - Type 2 diabetes mellitus without complications (6) HTN (hypertension) Code(s): I10 - ESSENTIAL (PRIMARY) HYPERTENSION Qualifiers: Hypertension type: essential hypertension Qualified Code(s): I10 - Essential (primary) hypertension (7) Hypercholesterolemia Code(s): E78.00 - PURE HYPERCHOLESTEROLEMIA, UNSPECIFIED
[2017-03-06] MEDS: oxyCODONE HCL 5 MG TABLET PO PRN (05:40)
[2017-03-06 08:28] LABS: MCH 27.7 pg (25.7-33.7); MCHC 32.9 g/dl (32.0-36.0); MEAN CELL VOLUME 84.3 fl (80-96); MEAN PLT VOLUME 8.6 fl (7.5-11.1); PLATELET COUNT 90 K/MM3 (134-434); RDW 16.9 % (11.6-15.6); WHITE BLOOD COUNT 16.6 K/mm3 (4.0-10.0)
--- NOTE | 2017-03-06 10:01 | PN ---
Progress Note (short form) - Note Progress Note: Ortho Pt seen and examined s/p right revision TKR pod #2, received 2 units of PRBCs Selected Entries 03/06/17 08:00 Temperature 97.8 F Pulse Rate 85 Respiratory 18 Rate Blood Pressure 124/70 Laboratory Tests 03/06/17 07:45 WBC 16.6 H D Hgb 8.2 L D Hct 24.9 L D Plt Count 90 L dressing c/d/i, calf soft, nt rom 0-40, nvi a/p PT dvt ppx pain control july d/c from ortho pov
[2017-03-06] MEDS: LISINOPRIL 20 MG TABLET (FP) PO SCH (10:22)
[2017-03-06] MEDS: amLODIPine BESYLATE 10 MG TABLET (FP) PO SCH (10:23)
[2017-03-06] MEDS: ASPIRIN 325 MG TABLET PO SCH (10:23)
--- NOTE | 2017-03-06 11:24 | PN ---
Progress Note, Physician Chief Complaint: Not in distress History of Present Illness: Patient was seen and examined. Awake and alert. Chart was reviewed Denies chest pain, SOB or palpitations - Current Medication List Current Medications: Active Medications Acetaminophen (Tylenol -) 650 mg PO Q6H PRN PRN Reason: FEVER OR PAIN Amlodipine Besylate (Norvasc -) 10 mg PO DAILY [facility] Last Admin: 03/06/17 10:23 Dose: 10 mg Aspirin (Asa -) 325 mg PO DAILY@0800 [facility] Last Admin: 03/06/17 10:23 Dose: 325 mg Fentanyl (Sublimaze Injection -) 25 mcg IVPUSH [id number] PRN PRN Reason: PAIN Hydromorphone HCl (Dilaudid Injection -) 1 mg IVPB Q3H PRN PRN Reason: PAIN Lisinopril (Prinivil) 40 mg PO DAILY [facility] Last Admin: 03/06/17 10:22 Dose: 40 mg Ondansetron HCl (Zofran Injection) 4 mg IVPUSH Q6H PRN PRN Reason: NAUSEA AND/OR VOMITING Oxycodone HCl (Roxicodone -) 5 mg PO Q4H PRN PRN Reason: MILD PAIN Last Admin: 03/06/17 05:40 Dose: 5 mg - Objective Vital Signs: Vital Signs Temperature 97.8 F 03/06/17 08:00 Pulse Rate 76 03/06/17 09:56 Respiratory Rate 18 03/06/17 08:00 Blood Pressure 124/70 03/06/17 08:00 O2 Sat by Pulse Oximetry (%) 98 03/06/17 09:56 Eyes: Yes: PERRL HENT: Yes: Atraumatic Neck: Yes: Supple Cardiovascular: Yes: Regular Rate and Rhythm, Murmur (Soft SM), S1, S2 Respiratory: Yes: CTA Bilaterally Gastrointestinal: Yes: Normal Bowel Sounds, Soft. No: Tenderness Edema: No Labs: CBC, BMP 03/06/17 07:45 03/05/17 07:40 Problem List - Problems (1) Preoperative cardiovascular examination Code(s): Z01.810 - ENCOUNTER FOR PREPROCEDURAL CARDIOVASCULAR EXAMINATION (2) HTN (hypertension) Code(s): I10 - ESSENTIAL (PRIMARY) HYPERTENSION Qualifiers: Hypertension type: essential hypertension Qualified Code(s): I10 - Essential (primary) hypertension (3) Hypercholesterolemia Code(s): E78.00 - PURE HYPERCHOLESTEROLEMIA, UNSPECIFIED (4) Diabetes mellitus Code(s): E11.9 - TYPE 2 DIABETES MELLITUS WITHOUT COMPLICATIONS Qualifiers: Diabetes mellitus type: type 2 Diabetes mellitus complication status: without complication Diabetes mellitus long-term insulin use: without exterminator helper termite use Qualified Code(s): E11.9 - Type 2 diabetes mellitus without complications (5) Atypical fracture of femur Code(s): M84.750A - ATYPICAL FEMORAL FRACTURE, UNSPECIFIED, INIT Qualifiers: Encounter type: subsequent encounter (6) TIA (transient ischemic attack) Code(s): G45.9 - TRANSIENT CEREBRAL ISCHEMIC ATTACK, UNSPECIFIED Qualifiers: Transient cerebral ischemia type: unspecified Qualified Code(s): G45.9 - Transient cerebral ischemic attack, unspecified Assessment/Plan 1. Dinora-prosthetic femoral fracture s/p mechanical fall post surgery 2. Hypertension 3. Hypercholesterolemia 4. Diabetes mellitus 5. Cerebrovascular disease PLAN: 1. Continue Amlodipine and Prinivil as tolerated 2. Post operative follow up. Continue PT and eventually rehab (short term) 3. Resume ASA as tolerated - resume 81 mg once a day instead of 325 mg 4. Analgesics as needed Further plans are to follow Jamil Bhardwaj MD
--- NOTE | 2017-03-06 11:40 | EKG ---
Test Reason : Blood Pressure : / mmHG Vent. Rate : 074 BPM Atrial Rate : 074 BPM P-R Int : 176 ms QRS Dur : 072 ms QT Int : 396 ms P-R-T Axes : 054 055 075 degrees QTc Int : 439 ms POOR DATA QUALITY, INTERPRETATION MAY BE ADVERSELY AFFECTED NORMAL SINUS RHYTHM NORMAL ECG WHEN COMPARED WITH ECG OF 01-MAY-2015 19:51, NON-SPECIFIC CHANGE IN ST SEGMENT IN ANTERIOR LEADS Confirmed by GOPI JIMENEZ MD ([id number]) on 03/06/2017 11:40:45 AM Referred By: Confirmed By:GOPI JIMENEZ MD
--- NOTE | 2017-03-06 14:42 | PATH ---
Surgical Pathology Report Patient Name: KEN CHUNG [facility]. Rec. #: [id number] /Age/Gender: 1930 (Age: 86) / F Account: [id number] Location: [address] [place] [address] Taken: 03/05/2017 Received: 03/05/2017 Reported: 03/06/2017 Physicians: Ben العراقي M.D. Specimen(s) Received OLD RIGHT KNEE IMPLANT Clinical History Old right knee implant Final Diagnosis KNEE, BONE AND IMPLANT, REMOVAL: BONE WITH INTERSTITIAL HEMORRHAGE. SURGICAL HARDWARE. MACROSCOPIC DIAGNOSIS. Electronically Signed Beth Morocho M.D. Gross Description Received in formalin labeled "old right knee implant," are 2 smith metallic portions of hardware measuring 7.6 and 7.2 cm in greatest dimension, consistent with a knee implant. The specimens display attached hemorrhagic bone. Vehicle Washer sections of the bone are submitted in one cassette, following decalcification. /03/05/201703/05/2017
[2017-03-06] MEDS: SODIUM CHLORIDE 1,000 ML IV SCH (17:03)
[2017-03-06] MEDS ORDERED: CEFTRIAXONE 1 GM in DEXTROSE 5%-WATER - 100 ML IVPB SCH (20:15)
[2017-03-06] MEDS ORDERED: DOCUSATE NA 100 MG/10 ML UNIT-DOSE CUPS PO PRN (20:22)
--- NOTE | 2017-03-06 20:22 | PN ---
Progress Note, Physician History of Present Illness: feeling good - Current Medication List Current Medications: Active Medications Acetaminophen (Tylenol -) 650 mg PO Q6H PRN PRN Reason: FEVER OR PAIN Amlodipine Besylate (Norvasc -) 10 mg PO DAILY [facility] Last Admin: 03/06/17 10:23 Dose: 10 mg Aspirin (Asa -) 325 mg PO DAILY@0800 [facility] Last Admin: 03/06/17 10:23 Dose: 325 mg Fentanyl (Sublimaze Injection -) 25 mcg IVPUSH [id number] PRN PRN Reason: PAIN Hydromorphone HCl (Dilaudid Injection -) 1 mg IVPB Q3H PRN PRN Reason: PAIN Sodium Chloride (Normal Saline -) 1,000 mls @ 75 mls/hr IV ASDIR [facility] Last Admin: 03/06/17 17:03 Dose: 75 mls/hr CEFTRIAXONE 1 G/50 ML PREMIX (Ceftriaxone 1 Gm-D5w Bag) 50 mls @ 100 mls/hr IVPB DAILY [facility] Lisinopril (Prinivil) 40 mg PO DAILY [facility] Last Admin: 03/06/17 10:22 Dose: 40 mg Ondansetron HCl (Zofran Injection) 4 mg IVPUSH Q6H PRN PRN Reason: NAUSEA AND/OR VOMITING Oxycodone HCl (Roxicodone -) 5 mg PO Q4H PRN PRN Reason: MILD PAIN Last Admin: 03/06/17 05:40 Dose: 5 mg - Objective Vital Signs: Vital Signs Temperature 99.2 F 03/06/17 18:00 Pulse Rate 88 03/06/17 18:00 Respiratory Rate 20 03/06/17 18:00 Blood Pressure 127/67 03/06/17 18:00 O2 Sat by Pulse Oximetry (%) 98 03/06/17 09:56 Constitutional: Yes: No Distress HENT: Yes: Atraumatic Neck: Yes: Supple Cardiovascular: Yes: Regular Rate and Rhythm Respiratory: Yes: CTA Bilaterally Gastrointestinal: Yes: Normal Bowel Sounds Extremities: Yes: Other (rlex s/p surgery) Neurological: Yes: Alert Labs: CBC, BMP 03/06/17 07:45 03/05/17 07:40 INR, PTT INR 1.05 (0.82-1.09) 03/04/17 13:30 Problem List - Problems (1) Atypical fracture of femur Assessment/Plan: ortho consult prn pain meds s/p surgery snf placement Code(s): M84.750A - ATYPICAL FEMORAL FRACTURE, UNSPECIFIED, INIT Qualifiers: Encounter type: subsequent encounter (2) Knee fracture, right Code(s): [id number] - (3) Leukocytosis (leucocytosis) Assessment/Plan: will check ua could be post surgical elevation will start emperic abx Code(s): D72.829 - ELEVATED WHITE BLOOD CELL COUNT, UNSPECIFIED (4) Chronic kidney disease (CKD) Code(s): N18.9 - CHRONIC KIDNEY DISEASE, UNSPECIFIED (5) Diabetes mellitus Code(s): E11.9 - TYPE 2 DIABETES MELLITUS WITHOUT COMPLICATIONS Qualifiers: Diabetes mellitus type: type 2 Diabetes mellitus complication status: without complication Diabetes mellitus care home insulin use: without local 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
[2017-03-06] MEDS: CEFTRIAXONE 1 G/50 ML PREMIX 50 ML IVPB SCH (21:24)
[2017-03-06 22:02] LABS: URINE APPEARANCE CLOUDY; URINE BILIRUBIN NEGATIVE (NEGATIVE); URINE BLOOD 1+ (NEGATIVE); URINE COLOR YELLOW; URINE GLUCOSE (UA) NEGATIVE (NEGATIVE); URINE KETONE NEGATIVE (NEGATIVE); URINE NITRITE NEGATIVE (NEGATIVE); URINE UROBILINOGEN NEGATIVE mg/dL (0.2-1.0)
[2017-03-06 22:25] LABS: URINE LEUK ESTERASE 3+ (NEGATIVE); URINE PROTEIN 2+ (NEGATIVE)
[2017-03-06 22:31] LABS: URINE BACTERIA RARE /hpf (NONE SEEN); URINE MUCUS RARE; URINE RBC 2 /hpf (0-3); URINE WBC 210 /hpf (3-5)
[2017-03-07] MEDS: ACETAMINOPHEN 325 MG TABLET (FP) PO PRN (00:40)
[2017-03-07] MEDS: SODIUM CHLORIDE 1,000 ML IV SCH ×2 (05:56→21:11)
[2017-03-07 09:16] LABS: BASOPHIL 0.5 % (0-2.0); EOSINOPHIL 2.3 % (0-4.5); MCH 28.1 pg (25.7-33.7); MCHC 32.9 g/dl (32.0-36.0); MEAN CELL VOLUME 85.6 fl (80-96); MEAN PLT VOLUME 9.1 fl (7.5-11.1); PLATELET COUNT 102 K/MM3 (134-434); RDW 17.7 % (11.6-15.6); WHITE BLOOD COUNT 14.4 K/mm3 (4.0-10.0)
[2017-03-07] MEDS: ASPIRIN 325 MG TABLET PO SCH (09:25)
[2017-03-07] MEDS: LISINOPRIL 20 MG TABLET (FP) PO SCH (09:25)
[2017-03-07] MEDS: amLODIPine BESYLATE 10 MG TABLET (FP) PO SCH (09:25)
[2017-03-07] MEDS: CEFTRIAXONE 1 G/50 ML PREMIX 50 ML IVPB SCH (09:25)
--- NOTE | 2017-03-07 09:42 | CON.ID ---
Consult Consult Specialty:: Infectious Disease Reason for Consultation:: fever/leukocytosis - History of Present Illness History of Present Illness: This is an 86 y.o. female with PMH of DM, HTN, HLD, TIA, GERD, b/l TKR admitted after a mechanical fall at home. The states that she landed on her Rt knee and developed pain and swelling. She normally uses a walker to ambulate at home where she lives alone. 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 She denied having any fever, chills, dizziness, shortness of breath, cough, CP, abd pain/n/v/d, or dysuria at the time of her fall. Pt found to have a Rt batool-prosthetic distal femoral fracture for which she underwent revision and distal femoral replacement on 12/. on POD #1 she developed a fever of 101.5F and then had leukocytosis with the wbc trending up to 16.6K. She was started empirically on Ceftriaxone and currently has a decrease in wbc and Tmax of 100F. She denies having any specific complaints. - Past Medical History POLE SHAVER: Yes: CVA, Peripheral Neuropathy, Vertigo Cardio/Vascular: Yes: CAD, HTN, Hyperlipdemia Endocrine: Yes: Diabetes Mellitus - Past Surgical History Past Surgical History: Yes: Hysterectomy, Joint Replacement (Bilateral knee surgery) Additional Surgical History: States neurosurgery for aneurysm in the past - Alcohol/Substance Use Hx Alcohol Use: No - Smoking History Smoking history: Smoker current status UNK Have you smoked in the past 12 months: No Aproximately how many cigarettes per day: 0 - Social History ADL: Independent History of Recent Travel: No Home Medications - Allergies Allergies/Adverse Reactions: Allergies Allergy/AdvReac Type Severity Reaction Status Date / Time No Known Allergies Allergy Verified 03/03/17 13:24 - Home Medications Home Medications: Ambulatory Orders Amlodipine Besylate 10 mg PO DAILY 03/03/17 Aspirin [Crystal Chewable Aspirin] 81 mg PO DAILY 03/03/17 Furosemide 20 mg PO DAILY 03/03/17 Lisinopril [Prinivil -] 40 mg PO DAILY 03/03/17 Omeprazole 40 mg PO DAILY 03/03/17 Ranitidine [Zantac -] 150 mg PO BID 03/03/17 Family Disease History - Family Disease History Other Family History: History of HTN and DM Review of Systems - Review of Systems Constitutional: reports: No Symptoms Eyes: reports: No Symptoms HENT: reports: No Symptoms Neck: reports: No Symptoms Cardiovascular: reports: No Symptoms Respiratory: reports: No Symptoms Gastrointestinal: reports: No Symptoms Genitourinary: reports: No Symptoms Breasts: reports: No Symptoms Reported Musculoskeletal: reports: Joint Pain (appropriate level of post-op pain) Integumentary: reports: No Symptoms Neurological: reports: No Symptoms Endocrine: reports: No Symptoms Hematology/Lymphatic: reports: No Symptoms Psychiatric: reports: No Symptoms Physical Exam Vital Signs: Vital Signs Temperature 98.6 F 03/07/17 05:54 Pulse Rate 89 03/07/17 05:54 Respiratory Rate 20 03/07/17 05:54 Blood Pressure 115/66 03/07/17 05:54 O2 Sat by Pulse Oximetry (%) 96 03/06/17 20:55 Constitutional: Yes: No Distress, Calm HENT: Yes: Atraumatic Neck: Yes: Supple Cardiovascular: Yes: Regular Rate and Rhythm Respiratory: Yes: CTA Bilaterally Gastrointestinal: Yes: Normal Bowel Sounds, Soft Renal/: Yes: WNL Musculoskeletal: Yes: Other (Rt knee dressing in place) Extremities: Yes: WNL Integumentary: Yes: WNL Wound/Incision: Yes: Dressing Dry and Intact Neurological: Yes: Alert, Oriented Psychiatric: Yes: Alert Labs: CBC, BMP 03/07/17 08:00 Blood and Urine cultures pending Problem List - Problems (1) Chronic kidney disease (CKD) Code(s): N18.9 - CHRONIC KIDNEY DISEASE, UNSPECIFIED (2) Diabetes mellitus Code(s): E11.9 - TYPE 2 DIABETES MELLITUS WITHOUT COMPLICATIONS Qualifiers: Diabetes mellitus type: type 2 Diabetes mellitus complication status: without complication Diabetes mellitus intermediate teacher insulin use: without skilled nursing use Qualified Code(s): E11.9 - Type 2 diabetes mellitus without complications (3) HTN (hypertension) Code(s): I10 - ESSENTIAL (PRIMARY) HYPERTENSION Qualifiers: Hypertension type: essential hypertension Qualified Code(s): I10 - Essential (primary) hypertension (4) Knee fracture, right Code(s): [id number] - (5) Leukocytosis (leucocytosis) Code(s): D72.829 - ELEVATED WHITE BLOOD CELL COUNT, UNSPECIFIED (6) Status post revision of total knee replacement Code(s): Z96.659 - PRESENCE OF UNSPECIFIED ARTIFICIAL KNEE JOINT Qualifiers: Laterality: right Qualified Code(s): Z96.651 - Presence of right artificial knee joint (7) TIA (transient ischemic attack) Code(s): G45.9 - TRANSIENT CEREBRAL ISCHEMIC ATTACK, UNSPECIFIED Qualifiers: Transient cerebral ischemia type: unspecified Qualified Code(s): G45.9 - Transient cerebral ischemic attack, unspecified Assessment/Plan s/p revision of Rt TKR/femoral replacement Leukocytosis Fever Possible UTI - continue Ceftriaxone empirically - f/u blood/urine culture results - monitor wbc, temp pt currently stable
[2017-03-07 09:47] LABS: CALCIUM 7.4 mg/dL (8.5-10.1); CO2 18 mmol/L (21-32); CREATININE 2.2 mg/dL (0.55-1.02); GLUCOSE,RANDOM 71 mg/dL (74-106)
[2017-03-07 09:51] LABS: ANION GAP 8 (8-16)
--- NOTE | 2017-03-07 11:44 | PN ---
Progress Note, Physician History of Present Illness: Low grade fevers and improving leukocytosis. Tolerated PT, post-op pain adequately controlled. - Current Medication List Current Medications: Active Medications Acetaminophen (Tylenol -) 650 mg PO Q6H PRN PRN Reason: FEVER OR PAIN Last Admin: 03/07/17 00:40 Dose: 650 mg Amlodipine Besylate (Norvasc -) 10 mg PO DAILY [facility] Last Admin: 03/07/17 09:25 Dose: 10 mg Aspirin (Asa -) 325 mg PO DAILY@0800 [facility] Last Admin: 03/07/17 09:25 Dose: 325 mg Docusate Sodium (Colace Liquid -) 100 mg PO DAILY PRN PRN Reason: CONSTIPATION Hydromorphone HCl (Dilaudid Injection -) 1 mg IVPB Q3H PRN PRN Reason: PAIN Sodium Chloride (Normal Saline -) 1,000 mls @ 75 mls/hr IV ASDIR [facility] Last Admin: 03/07/17 05:56 Dose: 75 mls/hr CEFTRIAXONE 1 G/50 ML PREMIX (Ceftriaxone 1 Gm-D5w Bag) 50 mls @ 100 mls/hr IVPB DAILY [facility] Last Admin: 03/07/17 09:25 Dose: 100 mls/hr Lisinopril (Prinivil) 40 mg PO DAILY [facility] Last Admin: 03/07/17 09:25 Dose: 40 mg Ondansetron HCl (Zofran Injection) 4 mg IVPUSH Q6H PRN PRN Reason: NAUSEA AND/OR VOMITING Oxycodone HCl (Roxicodone -) 5 mg PO Q4H PRN PRN Reason: MILD PAIN Last Admin: 03/06/17 05:40 Dose: 5 mg - Objective Vital Signs: Vital Signs Temperature 98.2 F 03/07/17 09:00 Pulse Rate 91 H 03/07/17 09:00 Respiratory Rate 18 03/07/17 09:00 Blood Pressure 135/92 03/07/17 09:00 O2 Sat by Pulse Oximetry (%) 98 03/07/17 09:00 Constitutional: Yes: No Distress, Calm Neck: Yes: Supple Cardiovascular: Yes: Regular Rate and Rhythm Respiratory: Yes: Regular, Diminished Gastrointestinal: Yes: Normal Bowel Sounds, Soft Edema: No Labs: CBC, BMP 03/07/17 08:00 03/07/17 08:00 INR, PTT INR 1.05 (0.82-1.09) 03/04/17 13:30 Problem List - Problems (1) Status post revision of total knee replacement Code(s): Z96.659 - PRESENCE OF UNSPECIFIED ARTIFICIAL KNEE JOINT Qualifiers: Laterality: right Qualified Code(s): Z96.651 - Presence of right artificial knee joint (2) Atypical fracture of femur Code(s): M84.750A - ATYPICAL FEMORAL FRACTURE, UNSPECIFIED, INIT Qualifiers: Encounter type: subsequent encounter (3) Diabetes mellitus Code(s): E11.9 - TYPE 2 DIABETES MELLITUS WITHOUT COMPLICATIONS Qualifiers: Diabetes mellitus type: type 2 Diabetes mellitus complication status: without complication Diabetes mellitus assistant terminal manager insulin use: without residential use Qualified Code(s): E11.9 - Type 2 diabetes mellitus without complications (4) HTN (hypertension) Code(s): I10 - ESSENTIAL (PRIMARY) HYPERTENSION Qualifiers: Hypertension type: essential hypertension Qualified Code(s): I10 - Essential (primary) hypertension (5) Hypercholesterolemia Code(s): E78.00 - PURE HYPERCHOLESTEROLEMIA, UNSPECIFIED (6) TIA (transient ischemic attack) Code(s): G45.9 - TRANSIENT CEREBRAL ISCHEMIC ATTACK, UNSPECIFIED Qualifiers: Transient cerebral ischemia type: unspecified Qualified Code(s): G45.9 - Transient cerebral ischemic attack, unspecified (7) Chronic kidney disease (CKD) Code(s): N18.9 - CHRONIC KIDNEY DISEASE, UNSPECIFIED (8) Anemia Code(s): D64.9 - ANEMIA, UNSPECIFIED Qualifiers: Other causes of anemia: acute posthemorrhagic (9) UTI (urinary tract infection) Code(s): N39.0 - URINARY TRACT INFECTION, SITE NOT SPECIFIED Qualifiers: Urinary tract infection type: site unspecified Hematuria presence: without hematuria Qualified Code(s): N39.0 - Urinary tract infection, site not specified (10) Leukocytosis (leucocytosis) Code(s): D72.829 - ELEVATED WHITE BLOOD CELL COUNT, UNSPECIFIED Qualifiers: Leukocytosis type: unspecified Qualified Code(s): D72.829 - Elevated white blood cell count, unspecified Assessment/Plan 1. Dinora-prosthetic femoral fracture s/p s/p revision of Rt TKR 2. Hypertension 3. Hypercholesterolemia 4. Diabetes mellitus 5. Cerebrovascular disease 6. Possible UTI with improving leukocytosis and fevers PLAN: 1. Continue Amlodipine 10 qd and Prinivil 40 qd as tolerated 2. Post operative follow up. Continue PT and eventually rehab (short term) 3. Change ASA 81 mg once a day instead of 325 mg 4. Analgesics as needed 5. DVT prophylaxis 6. Complete abx course f/u C&S
[2017-03-07 12:05] LABS: URINE LEUK ESTERASE 1+ (NEGATIVE)
--- NOTE | 2017-03-07 14:40 | PN ---
Progress Note (short form) - Note Progress Note: comfortable bandages dry and intact AROM 0-90 calf soft and NT NVI Imp: no evidence of infection. Leukocytosis most likely secondary to transfusion of PRBC and is now resolving spontaneously Plan: oob, P. I would DC ABX. Arrange placement.
--- NOTE | 2017-03-07 20:26 | PN ---
Progress Note, Physician - Current Medication List Current Medications: Active Medications Acetaminophen (Tylenol -) 650 mg PO Q6H PRN PRN Reason: FEVER OR PAIN Last Admin: 03/07/17 00:40 Dose: 650 mg Amlodipine Besylate (Norvasc -) 10 mg PO DAILY [facility] Last Admin: 03/07/17 09:25 Dose: 10 mg Aspirin (Asa -) 81 mg PO DAILY@0800 [facility] Docusate Sodium (Colace Liquid -) 100 mg PO DAILY PRN PRN Reason: CONSTIPATION Enoxaparin Sodium (Lovenox -) 30 mg SQ DAILY [facility] Sodium Chloride (Normal Saline -) 1,000 mls @ 75 mls/hr IV ASDIR [facility] Last Admin: 03/07/17 05:56 Dose: 75 mls/hr CEFTRIAXONE 1 G/50 ML PREMIX (Ceftriaxone 1 Gm-D5w Bag) 50 mls @ 100 mls/hr IVPB DAILY [facility] Last Admin: 03/07/17 09:25 Dose: 100 mls/hr Lisinopril (Prinivil) 40 mg PO DAILY [facility] Last Admin: 03/07/17 09:25 Dose: 40 mg Ondansetron HCl (Zofran Injection) 4 mg IVPUSH Q6H PRN PRN Reason: NAUSEA AND/OR VOMITING Oxycodone HCl (Roxicodone -) 5 mg PO Q4H PRN PRN Reason: MILD PAIN Last Admin: 03/06/17 05:40 Dose: 5 mg - Objective Vital Signs: Vital Signs Temperature 98.2 F 03/07/17 18:00 Pulse Rate 89 03/07/17 18:00 Respiratory Rate 20 03/07/17 18:00 Blood Pressure 139/67 03/07/17 18:00 O2 Sat by Pulse Oximetry (%) 97 03/07/17 11:30 Constitutional: Yes: No Distress HENT: Yes: Atraumatic Neck: Yes: Supple Cardiovascular: Yes: Regular Rate and Rhythm Respiratory: Yes: CTA Bilaterally Gastrointestinal: Yes: Normal Bowel Sounds Extremities: Yes: Other (s/p knee surgery R cortney) Neurological: Yes: Alert, Oriented Labs: CBC, BMP 03/07/17 08:00 03/07/17 08:00 INR, PTT INR 1.05 (0.82-1.09) 03/04/17 13:30 Problem List - Problems (1) Atypical fracture of femur Assessment/Plan: ortho consult prn pain meds s/p surgery snf placement Code(s): M84.750A - ATYPICAL FEMORAL FRACTURE, UNSPECIFIED, INIT Qualifiers: Encounter type: subsequent encounter (2) Knee fracture, right Code(s): [id number] - (3) Leukocytosis (leucocytosis) Assessment/Plan: will check ua could be post surgical elevation will start emperic abx Code(s): D72.829 - ELEVATED WHITE BLOOD CELL COUNT, UNSPECIFIED Qualifiers: Leukocytosis type: unspecified Qualified Code(s): D72.829 - Elevated white blood cell count, unspecified (4) Chronic kidney disease (CKD) Code(s): N18.9 - CHRONIC KIDNEY DISEASE, UNSPECIFIED (5) Diabetes mellitus Code(s): E11.9 - TYPE 2 DIABETES MELLITUS WITHOUT COMPLICATIONS Qualifiers: Diabetes mellitus type: type 2 Diabetes mellitus complication status: without complication Diabetes mellitus long term care administrator insulin use: without long term care administrator use Qualified Code(s): E11.9 - Type 2 diabetes mellitus without complications (6) HTN (hypertension) Code(s): I10 - ESSENTIAL (PRIMARY) HYPERTENSION Qualifiers: Hypertension type: essential hypertension Qualified Code(s): I10 - Essential (primary) hypertension (7) Hypercholesterolemia Code(s): E78.00 - PURE HYPERCHOLESTEROLEMIA, UNSPECIFIED
[2017-03-08] MEDS: ACETAMINOPHEN 325 MG TABLET (FP) PO PRN ×2 (02:14→22:59)
[2017-03-08] MEDS: ASPIRIN 81 MG CHEWABLE TABLETS PO SCH (09:51)
[2017-03-08] MEDS: amLODIPine BESYLATE 10 MG TABLET (FP) PO SCH (09:52)
[2017-03-08] MEDS: ENOXAPARIN NA (PORCINE) 30 MG/0.3 ML DISP.SYRIN SQ SCH (09:54)
[2017-03-08] MEDS: LISINOPRIL 20 MG TABLET (FP) PO SCH (09:54)
[2017-03-08] MEDS: CEFTRIAXONE 1 G/50 ML PREMIX 50 ML IVPB SCH (09:54)
--- NOTE | 2017-03-08 10:10 | PN ---
Progress Note (short form) - Note Progress Note: Ortho Pt seen and examined s/p right revision TKR pod #4 Selected Entries 03/07/17 03/08/17 14:00 09:50 Temperature 98.0 F 98.2 F Pulse Rate 86 93 H Respiratory 20 18 Rate Blood Pressure 119/65 121/72 Laboratory Tests 03/07/17 08:00 WBC 14.4 H Hgb 7.7 L Hct 23.5 L Plt Count 102 L dressing c/d/i, calf soft, nt rom 0-50, nvi a/p PT, wbat dvt ppx pain control d/c planning
--- NOTE | 2017-03-08 10:31 | PN ---
Progress Note, Physician History of Present Illness: Low grade fevers and improving leukocytosis. Tolerated PT, post-op pain adequately controlled. - Current Medication List Current Medications: Active Medications Acetaminophen (Tylenol -) 650 mg PO Q6H PRN PRN Reason: FEVER OR PAIN Last Admin: 03/08/17 02:14 Dose: 650 mg Amlodipine Besylate (Norvasc -) 10 mg PO DAILY [facility] Last Admin: 03/08/17 09:52 Dose: 10 mg Aspirin (Asa -) 81 mg PO DAILY@0800 [facility] Last Admin: 03/08/17 09:51 Dose: 81 mg Docusate Sodium (Colace Liquid -) 100 mg PO DAILY PRN PRN Reason: CONSTIPATION Enoxaparin Sodium (Lovenox -) 30 mg SQ DAILY [facility] Last Admin: 03/08/17 09:54 Dose: 30 mg CEFTRIAXONE 1 G/50 ML PREMIX (Ceftriaxone 1 Gm-D5w Bag) 50 mls @ 100 mls/hr IVPB DAILY [facility] Last Admin: 03/08/17 09:54 Dose: 100 mls/hr Lisinopril (Prinivil) 40 mg PO DAILY [facility] Last Admin: 03/08/17 09:54 Dose: 40 mg Ondansetron HCl (Zofran Injection) 4 mg IVPUSH Q6H PRN PRN Reason: NAUSEA AND/OR VOMITING Oxycodone HCl (Roxicodone -) 5 mg PO Q4H PRN PRN Reason: MILD PAIN Last Admin: 03/06/17 05:40 Dose: 5 mg - Objective Vital Signs: Vital Signs Temperature 98.2 F 03/08/17 09:50 Pulse Rate 93 H 03/08/17 09:50 Respiratory Rate 18 03/08/17 09:50 Blood Pressure 121/72 03/08/17 09:50 O2 Sat by Pulse Oximetry (%) 97 03/07/17 21:00 Constitutional: Yes: No Distress, Calm Neck: Yes: Supple Cardiovascular: Yes: Regular Rate and Rhythm Respiratory: Yes: Regular, Diminished Gastrointestinal: Yes: Normal Bowel Sounds, Soft Edema: No Labs: CBC, BMP 03/07/17 08:00 03/07/17 08:00 INR, PTT INR 1.05 (0.82-1.09) 03/04/17 13:30 Problem List - Problems (1) Status post revision of total knee replacement Code(s): Z96.659 - PRESENCE OF UNSPECIFIED ARTIFICIAL KNEE JOINT Qualifiers: Laterality: right Qualified Code(s): Z96.651 - Presence of right artificial knee joint (2) Atypical fracture of femur Code(s): M84.750A - ATYPICAL FEMORAL FRACTURE, UNSPECIFIED, INIT Qualifiers: Encounter type: subsequent encounter (3) Diabetes mellitus Code(s): E11.9 - TYPE 2 DIABETES MELLITUS WITHOUT COMPLICATIONS Qualifiers: Diabetes mellitus type: type 2 Diabetes mellitus complication status: without complication Diabetes mellitus custodial insulin use: without custodial use Qualified Code(s): E11.9 - Type 2 diabetes mellitus without complications (4) HTN (hypertension) Code(s): I10 - ESSENTIAL (PRIMARY) HYPERTENSION Qualifiers: Hypertension type: essential hypertension Qualified Code(s): I10 - Essential (primary) hypertension (5) Hypercholesterolemia Code(s): E78.00 - PURE HYPERCHOLESTEROLEMIA, UNSPECIFIED (6) TIA (transient ischemic attack) Code(s): G45.9 - TRANSIENT CEREBRAL ISCHEMIC ATTACK, UNSPECIFIED Qualifiers: Transient cerebral ischemia type: unspecified Qualified Code(s): G45.9 - Transient cerebral ischemic attack, unspecified (7) Chronic kidney disease (CKD) Code(s): N18.9 - CHRONIC KIDNEY DISEASE, UNSPECIFIED (8) Anemia Code(s): D64.9 - ANEMIA, UNSPECIFIED Qualifiers: Other causes of anemia: acute posthemorrhagic (9) UTI (urinary tract infection) Code(s): N39.0 - URINARY TRACT INFECTION, SITE NOT SPECIFIED Qualifiers: Urinary tract infection type: site unspecified Hematuria presence: without hematuria Qualified Code(s): N39.0 - Urinary tract infection, site not specified (10) Leukocytosis (leucocytosis) Code(s): D72.829 - ELEVATED WHITE BLOOD CELL COUNT, UNSPECIFIED Qualifiers: Leukocytosis type: unspecified Qualified Code(s): D72.829 - Elevated white blood cell count, unspecified Assessment/Plan 1. Dinora-prosthetic femoral fracture s/p s/p revision of Rt TKR POD#4 2. Hypertension 3. Hypercholesterolemia 4. Diabetes mellitus 5. Cerebrovascular disease 6. Possible UTI with improving leukocytosis and fevers PLAN: 1. Continue ASA 81 qd, Amlodipine 10 qd and Prinivil 40 qd as tolerated 2. Post operative follow up. Continue PT and eventually rehab (short term) 3. Analgesics as needed 4. DVT prophylaxis 5. Complete abx course f/u C&S
--- NOTE | 2017-03-08 13:27 | PN ---
Progress Note, Physician History of Present Illness: feeling good - Current Medication List Current Medications: Active Medications Acetaminophen (Tylenol -) 650 mg PO Q6H PRN PRN Reason: FEVER OR PAIN Last Admin: 03/08/17 02:14 Dose: 650 mg Amlodipine Besylate (Norvasc -) 10 mg PO DAILY [facility] Last Admin: 03/08/17 09:52 Dose: 10 mg Aspirin (Asa -) 81 mg PO DAILY@0800 [facility] Last Admin: 03/08/17 09:51 Dose: 81 mg Docusate Sodium (Colace Liquid -) 100 mg PO DAILY PRN PRN Reason: CONSTIPATION Enoxaparin Sodium (Lovenox -) 30 mg SQ DAILY [facility] Last Admin: 03/08/17 09:54 Dose: 30 mg CEFTRIAXONE 1 G/50 ML PREMIX (Ceftriaxone 1 Gm-D5w Bag) 50 mls @ 100 mls/hr IVPB DAILY [facility] Last Admin: 03/08/17 09:54 Dose: 100 mls/hr Lisinopril (Prinivil) 40 mg PO DAILY [facility] Last Admin: 03/08/17 09:54 Dose: 40 mg Ondansetron HCl (Zofran Injection) 4 mg IVPUSH Q6H PRN PRN Reason: NAUSEA AND/OR VOMITING Oxycodone HCl (Roxicodone -) 5 mg PO Q4H PRN PRN Reason: MILD PAIN Last Admin: 03/06/17 05:40 Dose: 5 mg - Objective Vital Signs: Vital Signs Temperature 98.2 F 03/08/17 09:50 Pulse Rate 93 H 03/08/17 09:50 Respiratory Rate 18 03/08/17 09:50 Blood Pressure 121/72 03/08/17 09:50 O2 Sat by Pulse Oximetry (%) 97 03/07/17 21:00 HENT: Yes: Atraumatic Cardiovascular: Yes: Regular Rate and Rhythm Respiratory: Yes: CTA Bilaterally Gastrointestinal: Yes: Normal Bowel Sounds Extremities: Yes: WNL Neurological: Yes: Alert, Oriented Labs: CBC, BMP 03/07/17 08:00 03/07/17 08:00 INR, PTT INR 1.05 (0.82-1.09) 03/04/17 13:30 Problem List - Problems (1) Atypical fracture of femur Assessment/Plan: prn pain meds s/p surgery snf placement..awaiting bed PT Code(s): M84.750A - ATYPICAL FEMORAL FRACTURE, UNSPECIFIED, INIT Qualifiers: Encounter type: subsequent encounter (2) Knee fracture, right Code(s): [id number] - (3) Leukocytosis (leucocytosis) Assessment/Plan: u cx negative could be post surgical elevation on emperic abx wbc imroving Code(s): D72.829 - ELEVATED WHITE BLOOD CELL COUNT, UNSPECIFIED Qualifiers: Leukocytosis type: unspecified Qualified Code(s): D72.829 - Elevated white blood cell count, unspecified (4) Chronic kidney disease (CKD) Code(s): N18.9 - CHRONIC KIDNEY DISEASE, UNSPECIFIED (5) Diabetes mellitus Code(s): E11.9 - TYPE 2 DIABETES MELLITUS WITHOUT COMPLICATIONS Qualifiers: Diabetes mellitus type: type 2 Diabetes mellitus complication status: without complication Diabetes mellitus correction insulin use: without correction use Qualified Code(s): E11.9 - Type 2 diabetes mellitus without complications (6) HTN (hypertension) Code(s): I10 - ESSENTIAL (PRIMARY) HYPERTENSION Qualifiers: Hypertension type: essential hypertension Qualified Code(s): I10 - Essential (primary) hypertension (7) Hypercholesterolemia Code(s): E78.00 - PURE HYPERCHOLESTEROLEMIA, UNSPECIFIED
--- NOTE | 2017-03-08 17:54 | PN ---
Progress Note, Physician History of Present Illness: Pt is alert and fully responsive. Feels well. Has no specific complaints. - Current Medication List Current Medications: Active Medications Acetaminophen (Tylenol -) 650 mg PO Q6H PRN PRN Reason: FEVER OR PAIN Last Admin: 03/08/17 02:14 Dose: 650 mg Amlodipine Besylate (Norvasc -) 10 mg PO DAILY [facility] Last Admin: 03/08/17 09:52 Dose: 10 mg Aspirin (Asa -) 81 mg PO DAILY@0800 [facility] Last Admin: 03/08/17 09:51 Dose: 81 mg Docusate Sodium (Colace Liquid -) 100 mg PO DAILY PRN PRN Reason: CONSTIPATION Enoxaparin Sodium (Lovenox -) 30 mg SQ DAILY [facility] Last Admin: 03/08/17 09:54 Dose: 30 mg CEFTRIAXONE 1 G/50 ML PREMIX (Ceftriaxone 1 Gm-D5w Bag) 50 mls @ 100 mls/hr IVPB DAILY [facility] Last Admin: 03/08/17 09:54 Dose: 100 mls/hr Lisinopril (Prinivil) 40 mg PO DAILY [facility] Last Admin: 03/08/17 09:54 Dose: 40 mg Ondansetron HCl (Zofran Injection) 4 mg IVPUSH Q6H PRN PRN Reason: NAUSEA AND/OR VOMITING Oxycodone HCl (Roxicodone -) 5 mg PO Q4H PRN PRN Reason: MILD PAIN Last Admin: 03/06/17 05:40 Dose: 5 mg - Objective Vital Signs: Vital Signs Temperature 99.1 F 03/08/17 14:44 Pulse Rate 81 03/08/17 14:44 Respiratory Rate 18 03/08/17 14:44 Blood Pressure 116/72 03/08/17 14:44 O2 Sat by Pulse Oximetry (%) 97 03/08/17 09:50 Constitutional: Yes: No Distress, Calm Cardiovascular: Yes: Regular Rate and Rhythm Respiratory: Yes: CTA Bilaterally Gastrointestinal: Yes: Normal Bowel Sounds, Soft Wound/Incision: Yes: Dressing Dry and Intact Labs: CBC, BMP 03/07/17 08:00 03/07/17 08:00 INR, PTT INR 1.05 (0.82-1.09) 03/04/17 13:30 Problem List - Problems (1) Chronic kidney disease (CKD) Code(s): N18.9 - CHRONIC KIDNEY DISEASE, UNSPECIFIED (2) Diabetes mellitus Code(s): E11.9 - TYPE 2 DIABETES MELLITUS WITHOUT COMPLICATIONS Qualifiers: Diabetes mellitus type: type 2 Diabetes mellitus complication status: without complication Diabetes mellitus mason liner insulin use: without halfway use Qualified Code(s): E11.9 - Type 2 diabetes mellitus without complications (3) HTN (hypertension) Code(s): I10 - ESSENTIAL (PRIMARY) HYPERTENSION Qualifiers: Hypertension type: essential hypertension Qualified Code(s): I10 - Essential (primary) hypertension (4) Knee fracture, right Code(s): [id number] - (5) Leukocytosis (leucocytosis) Code(s): D72.829 - ELEVATED WHITE BLOOD CELL COUNT, UNSPECIFIED Qualifiers: Leukocytosis type: unspecified Qualified Code(s): D72.829 - Elevated white blood cell count, unspecified (6) Status post revision of total knee replacement Code(s): Z96.659 - PRESENCE OF UNSPECIFIED ARTIFICIAL KNEE JOINT Qualifiers: Laterality: right Qualified Code(s): Z96.651 - Presence of right artificial knee joint (7) TIA (transient ischemic attack) Code(s): G45.9 - TRANSIENT CEREBRAL ISCHEMIC ATTACK, UNSPECIFIED Qualifiers: Transient cerebral ischemia type: unspecified Qualified Code(s): G45.9 - Transient cerebral ischemic attack, unspecified Assessment/Plan s/p revision of Rt TKR/femoral replacement Leukocytosis Fever -- blood/urine cultures no growth, no symptoms of PNA -- may d/c antibiotics and monitor pt doing well, currently stable
[2017-03-09 08:16] LABS: BASOPHIL 0.6 % (0-2.0); EOSINOPHIL 4.3 % (0-4.5); MCH 28.4 pg (25.7-33.7); MCHC 33.5 g/dl (32.0-36.0); MEAN CELL VOLUME 84.7 fl (80-96); MEAN PLT VOLUME 7.8 fl (7.5-11.1); NEUTROPHILS 72.5 % (42.8-82.8); PLATELET COUNT 163 K/MM3 (134-434); RDW 17.2 % (11.6-15.6); WHITE BLOOD COUNT 7.1 K/mm3 (4.0-10.0)
[2017-03-09] MEDS: ASPIRIN 81 MG CHEWABLE TABLETS PO SCH (10:09)
[2017-03-09] MEDS: LISINOPRIL 20 MG TABLET (FP) PO SCH (10:09)
[2017-03-09] MEDS: amLODIPine BESYLATE 10 MG TABLET (FP) PO SCH (10:09)
[2017-03-09] MEDS: ENOXAPARIN NA (PORCINE) 30 MG/0.3 ML DISP.SYRIN SQ SCH (10:09)
--- NOTE | 2017-03-09 15:49 | PN ---
Progress Note, Physician History of Present Illness: stable - Current Medication List Current Medications: Active Medications Acetaminophen (Tylenol -) 650 mg PO Q6H PRN PRN Reason: FEVER OR PAIN Last Admin: 03/08/17 22:59 Dose: 650 mg Amlodipine Besylate (Norvasc -) 10 mg PO DAILY [facility] Last Admin: 03/09/17 10:09 Dose: 10 mg Aspirin (Asa -) 81 mg PO DAILY@0800 [facility] Last Admin: 03/09/17 10:09 Dose: 81 mg Docusate Sodium (Colace Liquid -) 100 mg PO DAILY PRN PRN Reason: CONSTIPATION Enoxaparin Sodium (Lovenox -) 30 mg SQ DAILY [facility] Last Admin: 03/09/17 10:09 Dose: 30 mg Lisinopril (Prinivil) 40 mg PO DAILY [facility] Last Admin: 03/09/17 10:09 Dose: 40 mg Ondansetron HCl (Zofran Injection) 4 mg IVPUSH Q6H PRN PRN Reason: NAUSEA AND/OR VOMITING Oxycodone HCl (Roxicodone -) 5 mg PO Q4H PRN PRN Reason: MILD PAIN Last Admin: 03/06/17 05:40 Dose: 5 mg - Objective Vital Signs: Vital Signs Temperature 98.9 F 03/09/17 14:35 Pulse Rate 88 03/09/17 14:35 Respiratory Rate 18 03/09/17 14:35 Blood Pressure 141/82 03/09/17 14:35 O2 Sat by Pulse Oximetry (%) 97 03/09/17 10:05 Constitutional: Yes: No Distress HENT: Yes: Atraumatic Neck: Yes: Supple Cardiovascular: Yes: Regular Rate and Rhythm Respiratory: Yes: CTA Bilaterally Gastrointestinal: Yes: Normal Bowel Sounds Extremities: Yes: Other (r cortney in cast/dressing) Peripheral Pulses WNL: Yes Neurological: Yes: Alert, Oriented Labs: CBC, BMP 03/09/17 07:00 03/07/17 08:00 INR, PTT INR 1.05 (0.82-1.09) 03/04/17 13:30 Problem List - Problems (1) Atypical fracture of femur Assessment/Plan: prn pain meds s/p surgery snf placement..awaiting bed PT Code(s): M84.750A - ATYPICAL FEMORAL FRACTURE, UNSPECIFIED, INIT Qualifiers: Encounter type: subsequent encounter (2) Knee fracture, right Code(s): [id number] - (3) Leukocytosis (leucocytosis) Assessment/Plan: u cx negative could be post surgical elevation on emperic abx wbc imroving Code(s): D72.829 - ELEVATED WHITE BLOOD CELL COUNT, UNSPECIFIED Qualifiers: Leukocytosis type: unspecified Qualified Code(s): D72.829 - Elevated white blood cell count, unspecified (4) Chronic kidney disease (CKD) Code(s): N18.9 - CHRONIC KIDNEY DISEASE, UNSPECIFIED (5) Diabetes mellitus Code(s): E11.9 - TYPE 2 DIABETES MELLITUS WITHOUT COMPLICATIONS Qualifiers: Diabetes mellitus type: type 2 Diabetes mellitus complication status: without complication Diabetes mellitus alf insulin use: without alf use Qualified Code(s): E11.9 - Type 2 diabetes mellitus without complications (6) HTN (hypertension) Code(s): I10 - ESSENTIAL (PRIMARY) HYPERTENSION Qualifiers: Hypertension type: essential hypertension Qualified Code(s): I10 - Essential (primary) hypertension (7) Hypercholesterolemia Code(s): E78.00 - PURE HYPERCHOLESTEROLEMIA, UNSPECIFIED
--- NOTE | 2017-03-09 18:54 | DS ---
Physical Examination Vital Signs: Vital Signs Temperature 98.9 F 03/09/17 14:35 Pulse Rate 88 03/09/17 14:35 Respiratory Rate 18 03/09/17 14:35 Blood Pressure 141/82 03/09/17 14:35 O2 Sat by Pulse Oximetry (%) 97 03/09/17 10:05 Labs: CBC, BMP 03/09/17 07:00 03/07/17 08:00 Discharge Summary Reason For Visit: FRACTURE OF RIGHT KNEE REGION Current Active Problems Anemia (Acute) Atypical fracture of femur (Acute) Chronic kidney disease (CKD) (Acute) Diabetes mellitus (Acute) HTN (hypertension) (Acute) Hypercholesterolemia (Acute) Knee fracture, right (Acute) Leukocytosis (leucocytosis) (Acute) Preoperative cardiovascular examination (Acute) Status post revision of total knee replacement (Acute) UTI (urinary tract infection) (Acute) Condition: Improved - Instructions Referrals: Anthony Davies [Primary Care Provider] - - Home Medications Comprehensive Discharge Medication List: Ambulatory Orders Amlodipine Besylate 10 mg PO DAILY 03/03/17 Aspirin [Crystal Chewable Aspirin] 81 mg PO DAILY 03/03/17 Furosemide 20 mg PO DAILY 03/03/17 Lisinopril [Prinivil -] 40 mg PO DAILY 03/03/17 Omeprazole 40 mg PO DAILY 03/03/17 Ranitidine [Zantac -] 150 mg PO BID 03/03/17 [facility]
[2017-03-10] MEDS: ENOXAPARIN NA (PORCINE) 30 MG/0.3 ML DISP.SYRIN SQ SCH (09:07)
[2017-03-10] MEDS: LISINOPRIL 20 MG TABLET (FP) PO SCH (09:07)
[2017-03-10] MEDS: ASPIRIN 81 MG CHEWABLE TABLETS PO SCH (09:07)
[2017-03-10] MEDS: amLODIPine BESYLATE 10 MG TABLET (FP) PO SCH (09:07)
[2017-03-10 09:32] VITALS: BP 143/63; PULSE 87; TEMP 98.5
--- NOTE | 2017-03-10 11:51 | PN ---
Progress Note, Physician Chief Complaint: Not in distress History of Present Illness: Patient was seen and examined. Awake and alert. Chart was reviewed Denies chest pain, SOB or palpitations - Current Medication List Current Medications: Active Medications Acetaminophen (Tylenol -) 650 mg PO Q6H PRN PRN Reason: FEVER OR PAIN Last Admin: 03/08/17 22:59 Dose: 650 mg Amlodipine Besylate (Norvasc -) 10 mg PO DAILY [facility] Last Admin: 03/10/17 09:07 Dose: 10 mg Aspirin (Asa -) 81 mg PO DAILY@0800 [facility] Last Admin: 03/10/17 09:07 Dose: 81 mg Docusate Sodium (Colace Liquid -) 100 mg PO DAILY PRN PRN Reason: CONSTIPATION Enoxaparin Sodium (Lovenox -) 30 mg SQ DAILY [facility] Last Admin: 03/10/17 09:07 Dose: 30 mg Lisinopril (Prinivil) 40 mg PO DAILY [facility] Last Admin: 03/10/17 09:07 Dose: 40 mg Ondansetron HCl (Zofran Injection) 4 mg IVPUSH Q6H PRN PRN Reason: NAUSEA AND/OR VOMITING Oxycodone HCl (Roxicodone -) 5 mg PO Q4H PRN PRN Reason: MILD PAIN Last Admin: 03/06/17 05:40 Dose: 5 mg - Objective Vital Signs: Vital Signs Temperature 98.5 F 03/10/17 09:31 Pulse Rate 87 03/10/17 09:31 Respiratory Rate 20 03/10/17 09:31 Blood Pressure 143/63 03/10/17 09:31 O2 Sat by Pulse Oximetry (%) 97 03/09/17 21:00 Neck: Yes: Supple Cardiovascular: Yes: Regular Rate and Rhythm, S1, S2 Respiratory: Yes: CTA Bilaterally Gastrointestinal: Yes: Normal Bowel Sounds, Soft. No: Tenderness Edema: No Problem List - Problems (1) Preoperative cardiovascular examination Code(s): Z01.810 - ENCOUNTER FOR PREPROCEDURAL CARDIOVASCULAR EXAMINATION (2) HTN (hypertension) Code(s): I10 - ESSENTIAL (PRIMARY) HYPERTENSION Qualifiers: Hypertension type: essential hypertension Qualified Code(s): I10 - Essential (primary) hypertension (3) Hypercholesterolemia Code(s): E78.00 - PURE HYPERCHOLESTEROLEMIA, UNSPECIFIED (4) Diabetes mellitus Code(s): E11.9 - TYPE 2 DIABETES MELLITUS WITHOUT COMPLICATIONS Qualifiers: Diabetes mellitus type: type 2 Diabetes mellitus complication status: without complication Diabetes mellitus long term care administrator insulin use: without nursing home use Qualified Code(s): E11.9 - Type 2 diabetes mellitus without complications (5) Atypical fracture of femur Code(s): M84.750A - ATYPICAL FEMORAL FRACTURE, UNSPECIFIED, INIT Qualifiers: Encounter type: subsequent encounter (6) TIA (transient ischemic attack) Code(s): G45.9 - TRANSIENT CEREBRAL ISCHEMIC ATTACK, UNSPECIFIED Qualifiers: Transient cerebral ischemia type: unspecified Qualified Code(s): G45.9 - Transient cerebral ischemic attack, unspecified Assessment/Plan 1. Dinora-prosthetic femoral fracture s/p mechanical fall post surgery - s/p surgical repair 2. Hypertension 3. Hypercholesterolemia 4. Diabetes mellitus 5. Cerebrovascular disease PLAN: 1. Continue Amlodipine and Prinivil as tolerated 2. Post operative follow up. Continue PT and plan to be transferred to rehab ( short term) 3. ASA 4. Analgesics as needed Further plans are to follow Jamil Bhardwaj MD
--- NOTE | 2017-03-10 23:04 | DS ---
Physical Examination Vital Signs: Vital Signs Temperature 98.5 F 03/10/17 09:31 Pulse Rate 87 03/10/17 09:31 Respiratory Rate 20 03/10/17 09:31 Blood Pressure 143/63 03/10/17 09:31 O2 Sat by Pulse Oximetry (%) 97 03/09/17 21:00 Labs: CBC, BMP 03/09/17 07:00 03/07/17 08:00 Discharge Summary Reason For Visit: FRACTURE OF RIGHT KNEE REGION Condition: Improved - Instructions Referrals: Anthony Davies [Primary Care Provider] - Disposition: [facility] - Home Medications Comprehensive Discharge Medication List: Ambulatory Orders Amlodipine Besylate 10 mg PO DAILY 03/03/17 Aspirin [Crystal Chewable Aspirin] 81 mg PO DAILY 03/03/17 Furosemide 20 mg PO DAILY 03/03/17 Lisinopril [Prinivil -] 40 mg PO DAILY 03/03/17 Omeprazole 40 mg PO DAILY 03/03/17 Ranitidine [Zantac -] 150 mg PO BID 03/03/17 dc to snf
== END 2017-03-10 14:35 | DRG 470 ==
LOC: JER 13:19 → J6S 17:25
PROVIDERS: ADMIT Internal Medicine; ATTEND Internal Medicine
PROC: 30233N1 Transfusion of Nonautologous Red Blood Cells into Peripheral Vein, Percutaneous Approach (ICD-10-PCS; 2017-03-04)
PROC: 0SRC0J9 Replacement of Right Knee Joint with Synthetic Substitute, Cemented, Open Approach (ICD-10-PCS; principal; 2017-03-04 16:00)
DX: S72.401A Unspecified fracture of lower end of right femur, initial encounter for closed fracture (principal); N39.0 Urinary tract infection, site not specified; M96.661 Fracture of femur following insertion of orthopedic implant, joint prosthesis, or bone plate, right leg; W19.XXXA Unspecified fall, initial encounter; Y93.9 Activity, unspecified; Y92.090 Kitchen in other non-institutional residence as the place of occurrence of the external cause; Y99.9 Unspecified external cause status; Z86.73 Personal history of transient ischemic attack (TIA), and cerebral infarction without residual deficits; D72.829 Elevated white blood cell count, unspecified; I12.9 Hypertensive chronic kidney disease with stage 1 through stage 4 chronic kidney disease, or unspecified chronic kidney disease; E11.22 Type 2 diabetes mellitus with diabetic chronic kidney disease; N18.9 Chronic kidney disease, unspecified; D64.9 Anemia, unspecified; E78.5 Hyperlipidemia, unspecified
CPT/HCPCS: 36415; 36430; 71010-TC; 73552-TC-RT; 73560-TC-RT; 73562-TC-RT; 80048; 80053; 81003; 81015; 85025; 85027; 85610; 86850; 86900; 86901; 86922; 87040; 87086; 88304-TC; 88311-TC; 93005; 93010; 93306-TC; 94010; 97116-GP; 97161-GP; 99282-25; P9038; P9058

== ENCOUNTER 2017-03-10 16:24 | Emergency (ER) | payer OTHER ==
[2017-03-10 17:16] VITALS: PULSE 82; TEMP 99; BMI 26.6
[2017-03-10] MEDS ORDERED: PANTOPRAZOLE SODIUM 40 MG VIAL IVPUSH ONE (17:25)
--- NOTE | 2017-03-10 17:53 | PDOC ---
History of Present Illness - General Stated Complaint: VOMITING BLOOD Time Seen by Provider: 03/10/17 16:54 - History of Present Illness Initial Comments: 86 year old female, with a significant past medical history of hypertension, hyperlipidemia, diabetes, TIA, GERD, and recent right TKA who presents to the emergency department directly after discharge earlier today because of reported bloody emesis. Per patient, she was on the way back to her rehab center and the EMS ride was particularly bumpy and winding which made her nauseous. She vomited because of the nausea which was very red in color and reported by EMS as bright red blood. She only took aspirin and is not on any other blood thinners. The patient does admit to drinking cranberry juice The patient reports she was in her kitchen when her knees gave out, and she landed on her right knee. Patient reports associated pain to the right knee and swelling. Patient states she is unable to stand on her leg secondary to pain. She denies any head trauma, LOC, headache, changes in vision, neck/back/hip pain. Patient reports a history of a right knee replacement. Patient is on a daily Aspirin. She denies any fever, chills, dizziness, lightheadedness, nausea, vomiting, changes in urination, or changes in bowel movements. She denies any recent travel or sick contacts. 03/10/17 17:53 03/10/17 18:18 Past History - Past Medical History Allergies/Adverse Reactions: Allergies Allergy/AdvReac Type Severity Reaction Status Date / Time No Known Allergies Allergy Verified 03/10/17 16:53 Home Medications: Ambulatory Orders Amlodipine Besylate 10 mg PO DAILY 03/03/17 Aspirin [Crystal Chewable Aspirin] 81 mg PO DAILY 03/03/17 Furosemide 20 mg PO DAILY 03/03/17 Lisinopril [Prinivil -] 40 mg PO DAILY 03/03/17 Omeprazole 40 mg PO DAILY 03/03/17 Ranitidine [Zantac -] 150 mg PO BID 03/03/17 Cardiac Disorders: Yes CVA: Yes ("TIAs") COPD: No CHF: No Diabetes: Yes (medications were discontinued by her primary care physician) GI Disorders: Yes (GERD) HTN: Yes Hypercholesterolemia: Yes - Surgical History Abdominal Surgery: Yes Orthopedic Surgery: Yes (FRANCISCA.TOTAL KNEE PLACEMENT) - Immunization History Immunization Up to Date: Yes - Suicide/Smoking/Psychosocial Hx Smoking Status: No Smoking History: Never smoked Have you smoked in the past 12 months: No Number of Cigarettes Smoked Daily: 0 Hx Alcohol Use: No Drug/Substance Use Hx: No Substance Use Type: None *Physical Exam - Vital Signs Last Vital Signs Temp Pulse Resp BP Pulse Ox 99 F 82 18 146/70 100 03/10/17 16:53 03/10/17 16:53 03/10/17 16:53 03/10/17 16:53 03/10/17 16:53 ED Treatment Course - LABORATORY CBC & Chemistry Diagram: 03/10/17 17:50
[2017-03-10 17:58] LABS: MCH 28.8 pg (25.7-33.7); MCHC 33.1 g/dl (32.0-36.0); MEAN PLT VOLUME 7.9 fl (7.5-11.1); PLATELET COUNT 231 K/MM3 (134-434); RDW 17.3 % (11.6-15.6); WHITE BLOOD COUNT 8.2 K/mm3 (4.0-10.0)
[2017-03-10] MEDS ORDERED: PANTOPRAZOLE SODIUM 40 MG/100 ML BAG IVPB ONE (18:02)
[2017-03-10 18:29] LABS: ANISOCYTOSIS 1+; HYPOCHROMIA 1+; MACROCYTOSIS 0; METAMYELOCYTE 0 % (0-2); MICROCYTOSIS 1+; MYELOCYTE 0 % (0-2); PLATELET ESTIMATE NORMAL; POIKILOCYTOSIS 0; POLYCHROMASIA 1+; REACTIVE LYMPHOCYTES 1 % (0-80)
--- NOTE | 2017-03-10 19:05 | PDOC ---
*Physical Exam - Vital Signs Last Vital Signs Temp Pulse Resp BP Pulse Ox 99 F 82 18 146/70 100 03/10/17 16:53 03/10/17 16:53 03/10/17 16:53 03/10/17 16:53 03/10/17 16:53 <Doe Jerez - Last Filed: 03/10/17 19:39> - Vital Signs Last Vital Signs Temp Pulse Resp BP Pulse Ox 99 F 82 18 146/70 100 03/10/17 16:53 03/10/17 16:53 03/10/17 16:53 03/10/17 16:53 03/10/17 16:53 <Anahy Calderon - Last Filed: 03/10/17 22:27> ED Treatment Course - LABORATORY CBC & Chemistry Diagram: 03/10/17 17:50 - ADDITIONAL ORDERS Additional order review: Laboratory Results 03/10/17 18:10 Stool Occult Blood Negative 03/10/17 17:50 RBC 2.90 L MCV 87.0 MCHC 33.1 RDW 17.3 H MPV 7.9 Neutrophils % No Result Required. Lymphocytes % No Result Required. - Medications Given in the ED: ED Medications Discontinued Medications Generic Name Dose Route Start Last Admin Trade Name Freq PRN Reason Stop Dose Admin Pantoprazole Sodium 40 mg 03/10/17 17:25 03/10/17 18:41 Protonix Iv IVPUSH 03/10/17 17:26 40 mg ONCE ONE Administration <Doe Jerez - Last Filed: 03/10/17 19:39> - LABORATORY CBC & Chemistry Diagram: 03/10/17 17:50 - ADDITIONAL ORDERS Additional order review: Laboratory Results 03/10/17 18:10 Stool Occult Blood Negative 03/10/17 17:50 RBC 2.90 L MCV 87.0 MCHC 33.1 RDW 17.3 H MPV 7.9 Neutrophils % No Result Required. Lymphocytes % No Result Required. - Medications Given in the ED: ED Medications Discontinued Medications Generic Name Dose Route Start Last Admin Trade Name Freq PRN Reason Stop Dose Admin Pantoprazole Sodium 40 mg 03/10/17 17:25 03/10/17 18:41 Protonix Iv IVPUSH 03/10/17 17:26 40 mg ONCE ONE Administration <Anahy Calderon - Last Filed: 03/10/17 22:27> Medical Decision Making - Medical Decision Making 03/10/17 19:05 Care taken over from Dr. Garcia. 03/10/17 19:39 Patient successfully passed PO challenge. Labs improved from patient baseline. No concern for acute bleed. Patient AOx3. Will d/c patient to home. <Doe Jerez - Last Filed: 03/10/17 19:39> *DC/Admit/Observation/Transfer <Doe Jerez - Last Filed: 03/10/17 19:39> <Anahy Calderon - Last Filed: 03/10/17 22:27> Diagnosis at time of Disposition: Anemia Qualifiers: Anemia type: unspecified type Qualified Code(s): D64.9 - Anemia, unspecified Vomiting Qualifiers: Vomiting type: unspecified Vomiting Intractability: non-intractable Nausea presence: unspecified Qualified Code(s): R11.10 - Vomiting, unspecified - Discharge Dispostion Disposition: HOME - Referrals Referrals: Anthony Davies [Primary Care Provider] - - Patient Instructions Printed Discharge Instructions: DI for Vomiting -- Adult Additional Instructions: Please return if any increase in nausea, vomiting, fever, pain, or any other concerning symptoms. Follow-up with PCP in 1-2 days. - Post Discharge Activity
--- NOTE | 2017-03-10 19:45 | PDOC ---
Attending Attestation - Resident Resident Name: Doe Jerez - ED Attending Attestation I have performed the following: I have examined & evaluated the patient, The case was reviewed & discussed with the resident, I agree w/resident's findings & plan, Exceptions are as noted - HPI HPI: 03/10/17 19:39 86 yo female who was just discharged from [facility] and was being taken to [facility] . While transferring her from the stretcher she vomited and an observer thought is was blood so she returned for observation - Physicial Exam PE: 03/10/17 19:45 alert and conversant 86 yo female who complained that she vomited because the ambulance ride was so bumpy head ncat neck no jvd,supple lungs cta b.l cvs rrr+murmer abd soft nontender ext no edema neuro alert ,eating a turkey sandwich,no gross focel deficits skin skin,dry - Medical Decision Making 03/10/17 19:50 no evidence of GI bleeding stool culture negative for blood no abd pain hbg >8 which is good for her plan transfer back to [facility]
[2017-03-10 22:56] VITALS: BP 132/72
--- NOTE | 2017-03-13 11:37 | EKG ---
Test Reason : Blood Pressure : / mmHG Vent. Rate : 081 BPM Atrial Rate : 081 BPM P-R Int : 164 ms QRS Dur : 086 ms QT Int : 356 ms P-R-T Axes : -01 032 065 degrees QTc Int : 413 ms NORMAL SINUS RHYTHM NONSPECIFIC T WAVE ABNORMALITY ABNORMAL ECG WHEN COMPARED WITH ECG OF 03-MAR-2017 17:25, NO SIGNIFICANT CHANGE WAS FOUND Confirmed by GOPI JIMENEZ MD ([id number]) on 03/13/2017 11:37:17 AM Referred By: Confirmed By:GOPI JIMENEZ MD
== END 2017-03-10 23:02 | disposition home or self-care (01) ==
LOC: JER 16:24
PROC: 3E033GC Introduction of Other Therapeutic Substance into Peripheral Vein, Percutaneous Approach (ICD-10-PCS; principal; 2017-03-10)
DX: D64.9 Anemia, unspecified (principal); R11.10 Vomiting, unspecified; I10 Essential (primary) hypertension; E78.5 Hyperlipidemia, unspecified; E11.9 Type 2 diabetes mellitus without complications; K21.9 Gastro-esophageal reflux disease without esophagitis; S88.911A Complete traumatic amputation of right lower leg, level unspecified, initial encounter
CPT/HCPCS: 36415; 82272; 85025; 93005; 93010; 99283-25

== ENCOUNTER 2017-03-13 12:15 | Emergency (ER) | payer OTHER ==
[2017-03-13 12:33] VITALS: BMI 32.5
--- NOTE | 2017-03-13 12:47 | PDOC ---
History of Present Illness - General Chief Complaint: Revisit, Lab Variance Stated Complaint: ABNORMAL LABS Time Seen by Provider: 03/13/17 12:47 - History of Present Illness Initial Comments: 03/13/17 12:48 Ms. Clifford is an 86 yo female w/ pmh of HTN, HLD, DM, TIA, GERD, and recent R TKA who presents for evaluation [facility]. She currently feels great and would like to go home. The patient denies chest pain, shortness of breath, headache and dizziness. Denies fever, chills, nausea, vomit, diarrhea and constipation. Denies dysuria, frequency, urgency and hematuria. Allergies: NKDA Past History - Past Medical History Allergies/Adverse Reactions: Allergies Allergy/AdvReac Type Severity Reaction Status Date / Time No Known Allergies Allergy Verified 03/13/17 12:33 Home Medications: Ambulatory Orders Amlodipine Besylate 10 mg PO DAILY 03/03/17 Aspirin [Crystal Chewable Aspirin] 81 mg PO DAILY 03/03/17 Furosemide 20 mg PO DAILY 03/03/17 Lisinopril [Prinivil -] 40 mg PO DAILY 03/03/17 Omeprazole 40 mg PO DAILY 03/03/17 Ranitidine [Zantac -] 150 mg PO BID 03/03/17 Cardiac Disorders: Yes CVA: Yes ("TIAs") COPD: No CHF: No Diabetes: Yes (medications were discontinued by her primary care physician) GI Disorders: Yes (GERD) HTN: Yes Hypercholesterolemia: Yes - Surgical History Abdominal Surgery: Yes Orthopedic Surgery: Yes (FRANCISCA.TOTAL KNEE PLACEMENT) - Immunization History Immunization Up to Date: Yes - Suicide/Smoking/Psychosocial Hx Smoking Status: No Smoking History: Unknown if ever smoked Have you smoked in the past 12 months: No Number of Cigarettes Smoked Daily: 0 Information on smoking cessation initiated: No Hx Alcohol Use: No Drug/Substance Use Hx: No Substance Use Type: None Review of Systems - Review of Systems Comments:: 03/13/17 15:01 GENERAL/CONSTITUTIONAL: No fever or chills. No weakness. HEAD, EYES, EARS, NOSE AND THROAT: No change in vision. No ear pain or discharge. No sore throat. CARDIOVASCULAR: No chest pain or shortness of breath RESPIRATORY: No cough, wheezing, or hemoptysis. GASTROINTESTINAL: No nausea, vomiting, diarrhea or constipation. GENITOURINARY: No dysuria, frequency, or change in urination. MUSCULOSKELETAL: No joint or muscle swelling or pain. No neck or back pain. SKIN: No rash NEUROLOGIC: No headache, vertigo, loss of consciousness, or change in strength/ sensation. ENDOCRINE: No increased thirst. No abnormal weight change HEMATOLOGIC/LYMPHATIC: No anemia, easy bleeding, or history of blood clots. ALLERGIC/IMMUNOLOGIC: No hives or skin allergy. *Physical Exam - Vital Signs Last Vital Signs Temp Pulse Resp BP Pulse Ox 99.0 F 72 18 129/69 100 03/13/17 12:15 03/13/17 12:15 03/13/17 12:15 03/13/17 12:15 03/13/17 12:15 - Physical Exam Comments: 03/13/17 15:01 GENERAL: Awake, alert, and fully oriented, in no acute distress HEAD: No signs of trauma, normocephalic, atraumatic EYES: PERRLA, EOMI, sclera anicteric, conjunctiva clear ENT: Auricles normal inspection, hearing grossly normal, nares patent, oropharynx clear without exudates. Moist mucosa NECK: Normal ROM, supple, no lymphadenopathy, JVD, or masses LUNGS: No distress, speaks full sentences, clear to auscultation bilaterally HEART: Regular rate and rhythm, normal S1 and S2, no murmurs, rubs or gallops, peripheral pulses normal and equal bilaterally. ABDOMEN: Soft, nontender, normoactive bowel sounds. No guarding, no rebound. No masses EXTREMITIES: Normal inspection, Normal range of motion, no edema. No clubbing or cyanosis. NEUROLOGICAL: Cranial nerves II through XII grossly intact. Normal speech, normal gait, no focal sensorimotor deficits SKIN: Warm, Dry, normal turgor, no rashes or lesions noted. ED Treatment Course - LABORATORY CBC & Chemistry Diagram: 03/13/17 13:55 03/13/17 13:55 Medical Decision Making - Medical Decision Making 03/13/17 15:02 Ms. Clifford presents for H/H evaluation. Levels noted to be 8.0/24.9 in ER. Patient is currently asymptomatic and this appears to be approximately patient' s current baseline from prior lab values. Will discharge to home with instructions to follow-up if any change in symptoms. *DC/Admit/Observation/Transfer Diagnosis at time of Disposition: Abnormal laboratory test result - Discharge Dispostion Disposition: HOME - Referrals Referrals: Anthony Davies [Primary Care Provider] - - Patient Instructions Printed Discharge Instructions: DI for Iron Deficiency Anemia-Adult Additional Instructions: Please return if any new symptoms of weakness, pain, bleeding, altered mental status, or any other concerning symptoms. - Post Discharge Activity
--- NOTE | 2017-03-13 12:56 | PDOC ---
Attending Attestation - Resident Resident Name: Doe Jerez - ED Attending Attestation I have performed the following: I have examined & evaluated the patient, The case was reviewed & discussed with the resident, I agree w/resident's findings & plan, Exceptions are as noted - HPI HPI: 03/13/17 12:53Sent from NH because of low H/H- patient has no physical complaints - Physicial Exam PE: VSS/NAD 03/13/17 12:55 - Medical Decision Making 03/13/17 12:[address] Jerez's Assessment and Plan
[2017-03-13 14:04] LABS: BASOPHIL 0.8 % (0-2.0); EOSINOPHIL 3.1 % (0-4.5); MCH 27.9 pg (25.7-33.7); MCHC 32.1 g/dl (32.0-36.0); MEAN CELL VOLUME 87.1 fl (80-96); MEAN PLT VOLUME 7.4 fl (7.5-11.1); NEUTROPHILS 80.1 % (42.8-82.8); PLATELET COUNT 391 K/MM3 (134-434); RDW 17.1 % (11.6-15.6); WHITE BLOOD COUNT 7.8 K/mm3 (4.0-10.0)
[2017-03-13 14:29] LABS: ALBUMIN 2.7 g/dl (3.4-5.0); ANION GAP 9 (8-16); BILIRUBIN,TOTAL 0.5 mg/dL (0.2-1.0); CALCIUM 8.5 mg/dL (8.5-10.1); CO2 23 mmol/L (21-32); GLUCOSE,RANDOM 93 mg/dL (74-106); SGPT/ALT 16 U/L (12-78)
[2017-03-13 14:30] LABS: ALK PHOS 104 U/L (45-117)
[2017-03-13 14:33] LABS: SGOT/AST 25 U/L (15-37)
[2017-03-13 16:27] VITALS: BP 132/68; PULSE 75; TEMP 97.8
== END 2017-03-13 16:31 | disposition home or self-care (01) ==
LOC: JER 12:15
DX: R79.9 Abnormal finding of blood chemistry, unspecified (principal); I10 Essential (primary) hypertension; E78.5 Hyperlipidemia, unspecified; E11.9 Type 2 diabetes mellitus without complications; K21.9 Gastro-esophageal reflux disease without esophagitis; Z89.611 Acquired absence of right leg above knee
CPT/HCPCS: 36415; 80053; 85025; 86850; 86900; 86901; 99282-25

== ENCOUNTER 2017-05-13 17:26 | Emergency (ER) | payer OTHER ==
[2017-05-13 17:38] VITALS: BP 157/80; PULSE 66; BMI 26.2
[2017-05-13 18:22] LABS: BASO % 1.1 % (0-2.0); EOS % 4.3 % (0-4.5); HEMATOCRIT 29.6 % (32.4-45.2); HEMOGLOBIN 9.6 GM/dL (10.7-15.3); LYMPH % 13.3 % (8-40); MCHC 32.4 g/dl (32.0-36.0); MEAN CELL VOLUME 89.5 fl (80-96); MEAN PLT VOLUME 8.5 fl (7.5-11.1); MONO % 8.8 % (3.8-10.2); NEUT % 72.5 % (42.8-82.8); PLATELET COUNT 202 K/MM3 (134-434); RBC 3.31 M/mm3 (3.60-5.2); RDW 17.2 % (11.6-15.6); WHITE BLOOD COUNT 5.1 K/mm3 (4.0-10.0)
[2017-05-13 18:48] LABS: ALBUMIN 3.7 g/dl (3.4-5.0); ANION GAP 8 (8-16); BLOOD UREA NITROGEN 52 mg/dL (7-18); CALCIUM 8.1 mg/dL (8.5-10.1); CHLORIDE 108 mmol/L (98-107); CO2 24 mmol/L (21-32); CREATININE 2.2 mg/dL (0.55-1.02); GLUCOSE,RANDOM 105 mg/dL (74-106); POTASSIUM 5.1 mmol/L (3.5-5.1); SGOT/AST 11 U/L (15-37); SGPT/ALT 12 U/L (12-78); SODIUM 140 mmol/L (136-145)
[2017-05-13 18:50] LABS: ALK PHOS 133 U/L (45-117); BILIRUBIN,TOTAL 0.3 mg/dL (0.2-1.0); TOT PROT 7.8 g/dl (6.4-8.2)
--- NOTE | 2017-05-13 20:40 | PDOC ---
History of Present Illness - General History Source: Patient, Care Provider Exam Limitations: No Limitations - History of Present Illness Initial Comments: 05/13/17 21:51 Patient is an 86 year old female with a significant past medical history of HTN , HLD, DM, TIA, GERD, and recent R TKA, who presents to the ED with complaints of bilateral knee pain that began earlier today while at home. Patient reports attempting to get up from chair at home when her knees began to buckle underneath here, causing her to falling onto her buttock. She reports getting recent knee replacement surgery by Dr. Topete on her right knee, prompting her to become worried and come into the ED for further evaluation. Denies chest pain, Sob. Denies nausea, vomiting. Denies fever, chills. Denies contact with sick individuals, out of state travelling. Denies any other symptoms. Allergies: None Social history: No smoking. No alcohol. No illicit drugs. Surgical history: Francisca. total knee replacement PMD: Dr. Davies <Zechariah Andres - Last Filed: 05/13/17 21:51> - General History Source: Patient, Care Provider <Romaine Jones - Last Filed: 05/13/17 23:45> - General Chief Complaint: Weakness Stated Complaint: WEAKNESS Time Seen by Provider: 05/13/17 20:39 Past History <Zechariah Andres - Last Filed: 05/13/17 21:51> - Past Medical History Cardiac Disorders: Yes CVA: Yes ("TIAs") COPD: No CHF: No Diabetes: Yes (medications were discontinued by her primary care physician) GI Disorders: Yes (GERD) HTN: Yes Hypercholesterolemia: Yes - Surgical History Abdominal Surgery: Yes Orthopedic Surgery: Yes (FRANCISCA.TOTAL KNEE PLACEMENT) - Immunization History Immunization Up to Date: Yes - Suicide/Smoking/Psychosocial Hx Smoking Status: No Smoking History: Unknown if ever smoked Have you smoked in the past 12 months: No Number of Cigarettes Smoked Daily: 0 Information on smoking cessation initiated: No Hx Alcohol Use: No Drug/Substance Use Hx: No Substance Use Type: None <Romaine Jones - Last Filed: 05/13/17 23:45> - Past Medical History Allergies/Adverse Reactions: Allergies Allergy/AdvReac Type Severity Reaction Status Date / Time No Known Allergies Allergy Verified 05/13/17 17:37 Home Medications: Ambulatory Orders Amlodipine Besylate 10 mg PO DAILY 03/03/17 Aspirin [Crystal Chewable Aspirin] 81 mg PO DAILY 03/03/17 Furosemide 20 mg PO DAILY 03/03/17 Lisinopril [Prinivil -] 40 mg PO DAILY 03/03/17 Omeprazole 40 mg PO DAILY 03/03/17 Ranitidine [Zantac -] 150 mg PO BID 03/03/17 Review of Systems - Review of Systems Able to Perform ROS?: Yes Comments:: 05/13/17 21:51 CONSTITUTIONAL: Absent: fever, no chills, no fatigue EYES: Absent: visual changes ENT: Absent: ear pain, no sore throat CARDIOVASCULAR: Absent: chest pain, no palpitations RESPIRATORY: Absent: cough, no SOB GI: Absent: abdominal pain, no nausea, no vomiting, no constipation, no diarrhea GENITOURINARY: Absent: dysuria, no frequency, no hematuria MUSCULOSKELETAL: +Bilateral knee pain, right greater than left. Absent: back pain, no arthralgia, no myalgia SKIN: Absent: rash <Zechariah Andres - Last Filed: 05/13/17 21:51> *Physical Exam - Vital Signs Last Vital Signs Temp Pulse Resp BP Pulse Ox 66 18 157/80 10 L 05/13/17 17:34 05/13/17 17:34 05/13/17 17:34 05/13/17 18:04 - Physical Exam Comments: 05/13/17 21:52 GENERAL: Well-appearing, well-nourished. No apparent distress. HEENT: Normocephalic, atraumatic. PERRL, EOM intact. CARDIOVASCULAR: Normal S1, S2. Regular rate and rhythm. PULMONARY: Clear to auscultation bilaterally. ABDOMEN: Negative pelvic rock. Soft, non-distended, non-tender. EXTREMITIES: +Profuse swelling of right leg and right knee with warmth but no erythema. +Decreased ROM secondary to pain. +Both ankles appear to be intact. Normal ROM in all four extremities. No gross deformities. SKIN: Warm, dry. No rash NEUROLOGICAL: No focal neurological deficits. <Zechariah Andres - Last Filed: 05/13/17 21:51> - Vital Signs Last Vital Signs Temp Pulse Resp BP Pulse Ox 66 18 157/80 10 L 05/13/17 17:34 05/13/17 17:34 05/13/17 17:34 05/13/17 18:04 <Romaine Jones - Last Filed: 05/13/17 23:45> ED Treatment Course - LABORATORY CBC & Chemistry Diagram: 05/13/17 17:55 05/13/17 17:55 - ADDITIONAL ORDERS Additional order review: Laboratory Results 05/13/17 17:55 Sodium 140 Potassium 5.1 Chloride 108 H Carbon Dioxide 24 Anion Gap 8 BUN 52 H Creatinine 2.2 H Creat Clearance w eGFR 21.26 Random Glucose 105 Calcium 8.1 L Total Bilirubin 0.3 D AST 11 L ALT 12 Alkaline Phosphatase 133 H Total Protein 7.8 Albumin 3.7 05/13/17 17:55 RBC 3.31 L MCV 89.5 MCHC 32.4 RDW 17.2 H MPV 8.5 D Neutrophils % 72.5 Lymphocytes % 13.3 D Monocytes % 8.8 Eosinophils % 4.3 Basophils % 1.1 <Zechariah Andres - Last Filed: 05/13/17 21:51> - LABORATORY CBC & Chemistry Diagram: 05/13/17 17:55 05/13/17 17:55 - ADDITIONAL ORDERS Additional order review: Laboratory Results 05/13/17 17:55 Sodium 140 Potassium 5.1 Chloride 108 H Carbon Dioxide 24 Anion Gap 8 BUN 52 H Creatinine 2.2 H Creat Clearance w eGFR 21.26 Random Glucose 105 Calcium 8.1 L Total Bilirubin 0.3 D AST 11 L ALT 12 Alkaline Phosphatase 133 H Total Protein 7.8 Albumin 3.7 05/13/17 17:55 RBC 3.31 L MCV 89.5 MCHC 32.4 RDW 17.2 H MPV 8.5 D Neutrophils % 72.5 Lymphocytes % 13.3 D Monocytes % 8.8 Eosinophils % 4.3 Basophils % 1.1 <Romaine Jones - Last Filed: 05/13/17 23:45> Medical Decision Making - Medical Decision Making 05/13/17 23:42 Dr. Jones: The scribe's documentation has been prepared under my direction and personally reviewed by me in its entirery. I confirm that the note above accurately reflects all work, treatment, procedures, and medical decision making performed by me. <Romaine Jnoes - Last Filed: 05/13/17 23:45> *DC/Admit/Observation/Transfer - Attestations Scribe Attestion: 05/13/17 21:52 Documentation prepared by Zechariah Andres, acting as medical record consultant for Romaine Jones MD/DO. <Zechariah Andres - Last Filed: 05/13/17 21:51> - Discharge Dispostion Admit: No <Romaine Jones - Last Filed: 05/13/17 23:45> Diagnosis at time of Disposition: Knee pain, bilateral Qualifiers: Chronicity: acute Qualified Code(s): M25.561 - Pain in right knee; M25.562 - Pain in left knee; M25.562 - Pain in left knee - Discharge Dispostion Disposition: HOME Condition at time of disposition: Stable - Referrals Referrals: Anthony Davies [Primary Care Provider] - - Patient Instructions Printed Discharge Instructions: DI for Knee Pain Additional Instructions: Please follow up with your primary care if any problems in two days. Xrays of both knees were read by the radiologist and are negative any problems. - Post Discharge Activity
== END 2017-05-14 02:34 | disposition home or self-care (01) ==
LOC: JER 17:26
DX: M25.561 Pain in right knee (principal); Z96.651 Presence of right artificial knee joint; I10 Essential (primary) hypertension; E78.5 Hyperlipidemia, unspecified; E11.9 Type 2 diabetes mellitus without complications; Z86.73 Personal history of transient ischemic attack (TIA), and cerebral infarction without residual deficits; K21.9 Gastro-esophageal reflux disease without esophagitis
CPT/HCPCS: 36415; 73562-TC-LT-FY; 73562-TC-RT-FY; 80053; 85025; 99282-25

== ENCOUNTER 2017-06-02 11:51 | Observation (INO) | payer OTHER ==
--- NOTE | 2017-06-02 12:03 | PDOC ---
History of Present Illness - General Stated Complaint: FALL Time Seen by Provider: 06/02/17 12:03 History Source: Patient Past History - Past Medical History Allergies/Adverse Reactions: Allergies Allergy/AdvReac Type Severity Reaction Status Date / Time No Known Allergies Allergy Verified 05/13/17 17:37 Home Medications: Ambulatory Orders Amlodipine Besylate 10 mg PO DAILY 03/03/17 Aspirin [Crystal Chewable Aspirin] 81 mg PO DAILY 03/03/17 Furosemide 20 mg PO DAILY 03/03/17 Lisinopril [Prinivil -] 40 mg PO DAILY 03/03/17 Omeprazole 40 mg PO DAILY 03/03/17 Ranitidine [Zantac -] 150 mg PO BID 03/03/17 Cardiac Disorders: Yes CVA: Yes ("TIAs") COPD: No CHF: No Diabetes: Yes (medications were discontinued by her primary care physician) GI Disorders: Yes (GERD) HTN: Yes Hypercholesterolemia: Yes - Surgical History Abdominal Surgery: Yes Orthopedic Surgery: Yes (FRANCISCA.TOTAL KNEE PLACEMENT) - Immunization History Immunization Up to Date: Yes - Suicide/Smoking/Psychosocial Hx Smoking Status: No Smoking History: Unknown if ever smoked Have you smoked in the past 12 months: No Number of Cigarettes Smoked Daily: 0 Hx Alcohol Use: No Drug/Substance Use Hx: No Substance Use Type: None
[2017-06-02] MEDS ORDERED: METHOCARBAMOL 500 MG TABLET PO ONE (13:44)
[2017-06-02] MEDS ORDERED: traMADol HCL 50 MG TABLET PO ONE (13:44)
--- NOTE | 2017-06-02 14:40 | PDOC ---
History of Present Illness - General History Source: Patient Exam Limitations: No Limitations - History of Present Illness Initial Comments: 06/02/17 15:49 The patient is a 86 year old female, with a significant past medical history of Asthma, CVA/TIA, Diabetes, GERD, HTN, HLD who presents to the emergency department s/p fall with R knee pain. Yesterday, patient fell after her knees locked while attempting to sit on her wheelchair. Patient denies any head trauma , bone injury, or LOC. Patient endorses throbbing R knee pain, 5/10 in severity with associated swelling to the area. Patient is unable to bear weight nor walk and presents to the ED for further evaluation. Patient denies chest pain, headache or dizziness. Patient denies fever, chills, abdominal pain, nausea, vomit, diarrhea or constipation. Patient denies dysuria, frequency, urgency or hematuria. Patient denies sick contacts or recent travel. Allergies: NKA Past surgical history: Bilateral knee replacement, Social history: None PCP: Dr. Anthony Davies <Jenifer Diggs - Last Filed: 06/02/17 15:51> <Anahy Calderon - Last Filed: 06/02/17 19:25> <Leana Crowley - Last Filed: 06/04/17 08:18> - General Chief Complaint: Injury Stated Complaint: FALL Time Seen by Provider: 06/02/17 12:03 Past History <Jenifer Diggs - Last Filed: 06/02/17 15:51> <Anahy Calderon - Last Filed: 06/02/17 19:25> - Past Medical History Cardiac Disorders: Yes CVA: Yes ("TIAs") COPD: No CHF: No Diabetes: Yes (medications were discontinued by her primary care physician) GI Disorders: Yes (GERD) HTN: Yes Hypercholesterolemia: Yes - Surgical History Abdominal Surgery: Yes Orthopedic Surgery: Yes (FRANCISCA.TOTAL KNEE PLACEMENT) - Immunization History Immunization Up to Date: Yes - Suicide/Smoking/Psychosocial Hx Smoking Status: No Smoking History: Unknown if ever smoked Have you smoked in the past 12 months: No Number of Cigarettes Smoked Daily: 0 Information on smoking cessation initiated: No Hx Alcohol Use: No Drug/Substance Use Hx: No Substance Use Type: None <Leana Crowley - Last Filed: 06/04/17 08:18> - Past Medical History Allergies/Adverse Reactions: Allergies Allergy/AdvReac Type Severity Reaction Status Date / Time No Known Allergies Allergy Verified 05/13/17 17:37 Home Medications: Ambulatory Orders Amlodipine Besylate 10 mg PO DAILY 03/03/17 Aspirin [Crystal Chewable Aspirin] 81 mg PO DAILY 03/03/17 Furosemide 20 mg PO DAILY 03/03/17 Lisinopril [Prinivil -] 40 mg PO DAILY 03/03/17 Omeprazole 40 mg PO DAILY 03/03/17 Ranitidine [Zantac -] 150 mg PO BID 03/03/17 Review of Systems - Review of Systems Able to Perform ROS?: Yes Comments:: 06/02/17 15:50 GENERAL/CONSTITUTIONAL: No: fever, chills, weakness, loss of appetite. HEAD, EYES, EARS, NOSE AND THROAT: No: change in vision, ear pain, discharge, sore throat, throat swelling. CARDIOVASCULAR: No: chest pain, lightheadedness, palpitations, syncope RESPIRATORY: No: cough, shortness of breath, wheezing, hemoptysis, stridor. GASTROINTESTINAL: No: nausea, vomiting, abdominal cramping, diarrhea, rectal bleeding, constipation. GENITOURINARY: No: dysuria, hematuria, frequency, urgency, flank pain. MUSCULOSKELETAL: + R knee pain and swelling. No: back pain, neck pain, joint pain, muscle swelling or pain SKIN: No: lesions, pallor, rash or easy bruising. NEUROLOGIC: No: headache, vertigo, paresthesias, weakness ENDOCRINE: No: unexplained weight gain or loss HEMATOLOGIC/LYMPHATIC: No: anemia, easy bleeding, swelling nodes <Jenifer Diggs - Last Filed: 06/02/17 15:51> *Physical Exam - Physical Exam Comments: 06/02/17 15:50 GENERAL: The patient is in no acute distress. HEAD: Normal with no signs of trauma. EYES: PERRLA, EOMI, sclera anicteric, conjunctiva clear. ENT: Ears normal, nares patent, oropharynx clear without exudates. Moist mucous membranes. NECK: Normal range of motion, supple without lymphadenopathy, JVD, or masses. LUNGS: Breath sounds equal, clear to auscultation bilaterally. No wheezes, and no crackles. HEART:Regular rate and rhythm, normal S1 and S2 without murmur, rub or gallop. ABDOMEN: Soft, nontender, normoactive bowel sounds. No guarding, no rebound. EXTREMITIES:+R knee swelling with limited ROM. No edema. No clubbing or cyanosis. No erythema, or tenderness.NEUROLOGICAL: Cranial nerves II through XII grossly intact. Normal speech. No focal neurological deficits. MUSCULOSKELETAL: Back nontender to palpation, no CVA tenderness SKIN: Warm, Dry, normal turgor, no rashes or lesions noted. <Jenifer Diggs - Last Filed: 06/02/17 15:51> - Vital Signs Last Vital Signs Temp Pulse Resp BP Pulse Ox 98.1 F 65 16 135/73 98 06/02/17 12:00 06/02/17 12:00 06/02/17 12:00 06/02/17 12:00 06/02/17 12:00 <Anahy Calderon - Last Filed: 06/02/17 19:25> ED Treatment Course - LABORATORY CBC & Chemistry Diagram: 06/02/17 17:05 06/02/17 17:05 - ADDITIONAL ORDERS Additional order review: Laboratory Results 06/02/17 17:05 Sodium 142 Potassium 4.8 Chloride 110 H Carbon Dioxide 25 Anion Gap 7 L BUN 63 H Creatinine 2.2 H Creat Clearance w eGFR 21.26 Random Glucose 85 Calcium 8.5 Total Bilirubin 0.3 AST 8 L ALT 11 L Alkaline Phosphatase 125 H Total Protein 7.5 Albumin 3.5 06/02/17 17:05 RBC 3.35 L MCV 88.8 MCHC 33.3 RDW 16.3 H MPV 8.4 Neutrophils % 68.2 Lymphocytes % 16.7 D Monocytes % 10.0 Eosinophils % 4.2 Basophils % 0.9 - Medications Given in the ED: ED Medications Discontinued Medications Generic Name Dose Route Start Last Admin Trade Name Freq PRN Reason Stop Dose Admin Methocarbamol 500 mg 06/02/17 13:44 06/02/17 16:30 Robaxin - PO 06/02/17 13:45 500 mg ONCE ONE Administration Tramadol HCl 50 mg 06/02/17 13:44 06/02/17 16:30 Ultram - PO 06/02/17 13:45 50 mg ONCE ONE Administration <Anahy Calderon - Last Filed: 06/02/17 19:25> - LABORATORY CBC & Chemistry Diagram: 06/02/17 17:05 06/02/17 17:05 - RADIOLOGY Radiology Studies Ordered: Category Date Time Status CERVICAL SPINE CT W/O CONTR [CT] Stat CT Scan 06/02/17 13:[address] WITHOUT CONTRAST [CT] Stat CT Scan 06/02/17 13:44 Ordered CHEST - PA [RAD] Stat Radiology 06/02/17 13:44 Ordered KNEE 3 POS-RIGHT [RAD] Stat Radiology 06/02/17 13:44 Ordered <Leana Crowley - Last Filed: 06/04/17 08:18> Medical Decision Making - Medical Decision Making 06/02/17 14:35 Ms Clifford is an 86 yo F with a history of HTN, HLD, bilateral knee replacement She presents emergency Department today with a complaint of right knee pain, inability to ambulate. Patient states at her baseline she was able to transfer from her bed to the bedside commode with the assistance of a walker, and she was able to transfer from wheelchair to her bed. Patient states that yesterday she attempted to get out of her wheelchair. She was unable to do so she repeatedly tried to squirm our of the chair She slid from the wheelchair to the ground No LOC, No amnesia This occurred yesterday at 6:30pm Pt was assisted back to her wheelchair She notes that she has had difficulty getting out of her wheelchair She has had difficulty standing will do: Labs CT head and C spine Right knee x ray EKG PT consult Re assess Pt does not believe that she can go home Pt daughter present She states that this patient is no longer ambulatory She does not want her to go home requesting that she be transferred to an inpatient rehab facility Pt seen by PT Has bilateral foot drop, difficulty ambulating Laboratory Tests 06/02/17 06/02/17 17:05 17:05 WBC 4.6 Hgb 9.9 L Hct 29.7 L Plt Count 171 BUN 63 H Creatinine 2.2 H Case reviewed with Dr. Arias Will admit Clinical impression: falls at home, initial presentation <Leana Crowley - Last Filed: 06/04/17 08:18> *DC/Admit/Observation/Transfer - Attestations Scribe Attestion: 06/02/17 15:50 Documentation prepared by Jenifer Diggs, acting as certified medical records coder for Leana Crowley MD <Jenifer Diggs - Last Filed: 06/02/17 15:51> - Discharge Dispostion Admit: Yes <Anahy Calderon - Last Filed: 06/02/17 19:25> - Discharge Dispostion Admit: Yes <Leana Crowley - Last Filed: 06/04/17 08:18> Diagnosis at time of Disposition: Difficulty walking, Frequent falls - Discharge Dispostion Condition at time of disposition: Stable
[2017-06-02] MEDS ORDERED: METHOCARBAMOL 500 MG TABLET ONE (16:27)
[2017-06-02] MEDS ORDERED: traMADol HCL 50 MG TABLET ONE (16:27)
[2017-06-02 17:13] LABS: BASO % 0.9 % (0-2.0); EOS % 4.2 % (0-4.5); HEMATOCRIT 29.7 % (32.4-45.2); HEMOGLOBIN 9.9 GM/dL (10.7-15.3); LYMPH % 16.7 % (8-40); MCH 29.5 pg (25.7-33.7); MCHC 33.3 g/dl (32.0-36.0); MEAN CELL VOLUME 88.8 fl (80-96); MEAN PLT VOLUME 8.4 fl (7.5-11.1); NEUT % 68.2 % (42.8-82.8); PLATELET COUNT 171 K/MM3 (134-434); RBC 3.35 M/mm3 (3.60-5.2); RDW 16.3 % (11.6-15.6); WHITE BLOOD COUNT 4.6 K/mm3 (4.0-10.0)
[2017-06-02 18:06] LABS: ALBUMIN 3.5 g/dl (3.4-5.0); ALK PHOS 125 U/L (45-117); ANION GAP 7 (8-16); BILIRUBIN,TOTAL 0.3 mg/dL (0.2-1.0); BLOOD UREA NITROGEN 63 mg/dL (7-18); CALCIUM 8.5 mg/dL (8.5-10.1); CHLORIDE 110 mmol/L (98-107); CO2 25 mmol/L (21-32); CREATININE 2.2 mg/dL (0.55-1.02); GLUCOSE,RANDOM 85 mg/dL (74-106); POTASSIUM 4.8 mmol/L (3.5-5.1); SGOT/AST 8 U/L (15-37); SGPT/ALT 11 U/L (12-78); SODIUM 142 mmol/L (136-145); TOT PROT 7.5 g/dl (6.4-8.2)
[2017-06-02 18:40] VITALS: BMI 26.6
--- NOTE | 2017-06-02 19:45 | HP ---
Admitting History and Physical - Primary Care Physician PCP: Love Arias - Admission History of Present Illness: 86 year old female, with a significant past medical history of Asthma, CVA/TIA, Diabetes, GERD, HTN, HLD who presents to the emergency department s/p fall with R knee pain. Yesterday, patient fell after her knees locked while attempting to sit on her wheelchair. Patient denies any head trauma, bone injury, or LOC. Patient endorses throbbing R knee pain, 5/10 in severity with associated swelling to the area. Patient is unable to bear weight nor walk and presents to the ED for further evaluation. s/p RTKR - Past Medical History [employer]: Yes: CVA, Peripheral Neuropathy, Vertigo Cardiovascular: Yes: CAD, HTN, Hyperlipdemia Heme/Onc: Yes: B12 Deficiency Endocrine: Yes: Diabetes Mellitus - Past Surgical History Past Surgical History: Yes: Hysterectomy, Joint Replacement (Bilateral knee surgery) - Smoking History Smoking history: Unknown if ever smoked Have you smoked in the past 12 months: No Aproximately how many cigarettes per day: 0 - Alcohol/Substance Use Hx Alcohol Use: No - Social History ADL: Independent History of Recent Travel: No Home Medications - Allergies Allergies/Adverse Reactions: Allergies Allergy/AdvReac Type Severity Reaction Status Date / Time No Known Allergies Allergy Verified 05/13/17 17:37 - Home Medications Home Medications: Ambulatory Orders Amlodipine Besylate 10 mg PO DAILY 03/03/17 Aspirin [Crystal Chewable Aspirin] 81 mg PO DAILY 03/03/17 Furosemide 20 mg PO DAILY 03/03/17 Lisinopril [Prinivil -] 40 mg PO DAILY 03/03/17 Omeprazole 40 mg PO DAILY 03/03/17 Ranitidine [Zantac -] 150 mg PO BID 03/03/17 Physical Examination Vital Signs: Vital Signs Temperature 98.1 F 06/02/17 12:00 Pulse Rate 65 06/02/17 12:00 Respiratory Rate 16 06/02/17 12:00 Blood Pressure 135/73 06/02/17 12:00 O2 Sat by Pulse Oximetry (%) 98 06/02/17 12:00 Constitutional: Yes: No Distress HENT: Yes: Atraumatic Neck: Yes: Supple Cardiovascular: Yes: Regular Rate and Rhythm Respiratory: Yes: CTA Bilaterally Gastrointestinal: Yes: Normal Bowel Sounds Extremities: Yes: WNL Labs: CBC, BMP 06/02/17 17:05 06/02/17 17:05 Problem List - Problems (1) Difficulty walking Assessment/Plan: pt eval pt for rehab placement Code(s): R26.2 - DIFFICULTY IN WALKING, NOT ELSEWHERE CLASSIFIED (2) Frequent falls Code(s): R29.6 - REPEATED FALLS (3) Anemia Assessment/Plan: fu labs workup per pmd as out pt Code(s): D64.9 - ANEMIA, UNSPECIFIED (4) Chronic kidney disease (CKD) Code(s): N18.9 - CHRONIC KIDNEY DISEASE, UNSPECIFIED (5) Diabetes mellitus Assessment/Plan: bgms monitor sugars Code(s): E11.9 - TYPE 2 DIABETES MELLITUS WITHOUT COMPLICATIONS Qualifiers: (6) HTN (hypertension) Assessment/Plan: on meds stable Code(s): I10 - ESSENTIAL (PRIMARY) HYPERTENSION Qualifiers: Assessment/Plan Laboratory Tests 06/02/17 06/02/17 17:05 17:05 WBC 4.6 RBC 3.35 L Hgb 9.9 L Hct 29.7 L MCV 88.8 MCH 29.5 MCHC 33.3 RDW 16.3 H Plt Count 171 MPV 8.4 Neutrophils % 68.2 Lymphocytes % 16.7 D Monocytes % 10.0 Eosinophils % 4.2 Basophils % 0.9 Sodium 142 Potassium 4.8 Chloride 110 H Carbon Dioxide 25 Anion Gap 7 L BUN 63 H Creatinine 2.2 H Creat Clearance w eGFR 21.26 Random Glucose 85 Calcium 8.5 Total Bilirubin 0.3 AST 8 L ALT 11 L Alkaline Phosphatase 125 H Total Protein 7.5 Albumin 3.5 Active Medications Generic Name Dose Route Start Last Admin Trade Name Freq PRN Reason Stop Dose Admin Amlodipine Besylate 10 mg 06/03/17 10:00 06/03/17 09:39 Norvasc - PO 10 mg DAILY IGGY Administration Aspirin 81 mg 06/03/17 10:00 06/03/17 09:39 Asa - PO 81 mg DAILY IGGY Administration Furosemide 20 mg 06/03/17 10:00 06/03/17 09:39 Lasix - PO 20 mg DAILY IGGY Administration Heparin Sodium (Porcine) 5,000 unit 06/02/17 22:00 06/03/17 09:40 Heparin - SQ 5,000 unit BID IGGY Administration Lisinopril 40 mg 06/03/17 10:00 06/03/17 09:40 Prinivil PO 40 mg DAILY IGGY Administration Pantoprazole Sodium 40 mg 06/03/17 10:00 06/03/17 09:39 Protonix - PO 40 mg DAILY IGGY Administration Tramadol HCl 50 mg 06/02/17 22:51 06/03/17 13:54 Ultram - PO 50 mg Q6H PRN Administration PAIN LEVEL 4 - 6
[2017-06-02] MEDS: HEPARIN NA (PORCINE) 5,000 UNITS/ML 1ML VIAL SQ SCH (22:32)
[2017-06-02] MEDS: traMADol HCL 50 MG TABLET PO PRN (23:01)
[2017-06-03] MEDS: FUROSEMIDE 20 MG TABLET (FP) PO SCH (09:39)
[2017-06-03] MEDS: amLODIPine BESYLATE 10 MG TABLET (FP) PO SCH (09:39)
[2017-06-03] MEDS: ASPIRIN 81 MG CHEWABLE TABLETS PO SCH (09:39)
[2017-06-03] MEDS: PANTOPRAZOLE 40 MG TABLET (FP) PO SCH (09:39)
[2017-06-03] MEDS: LISINOPRIL 20 MG TABLET (FP) PO SCH (09:40)
[2017-06-03] MEDS: HEPARIN NA (PORCINE) 5,000 UNITS/ML 1ML VIAL SQ SCH ×2 (09:40→21:50)
[2017-06-03] MEDS: traMADol HCL 50 MG TABLET PO PRN (13:54)
--- NOTE | 2017-06-03 14:21 | EKG ---
Test Reason : Blood Pressure : / mmHG Vent. Rate : 059 BPM Atrial Rate : 059 BPM P-R Int : 190 ms QRS Dur : 086 ms QT Int : 412 ms P-R-T Axes : 071 048 070 degrees QTc Int : 407 ms POOR DATA QUALITY, INTERPRETATION MAY BE ADVERSELY AFFECTED SINUS BRADYCARDIA LEFT VENTRICULAR HYPERTROPHY WITH REPOLARIZATION ABNORMALITY ABNORMAL ECG WHEN COMPARED WITH ECG OF 10-MAR-2017 17:05, NO SIGNIFICANT CHANGE WAS FOUND Confirmed by MD Farideh, Sly ([id number]) on 06/03/2017 2:21:29 PM Referred By: Confirmed By:Sly Gong MD
--- NOTE | 2017-06-03 14:34 | PN ---
Progress Note, Physician History of Present Illness: feeling good - Current Medication List Current Medications: Active Medications Amlodipine Besylate (Norvasc -) 10 mg PO DAILY [facility] Last Admin: 06/03/17 09:39 Dose: 10 mg Aspirin (Asa -) 81 mg PO DAILY [facility] Last Admin: 06/03/17 09:39 Dose: 81 mg Furosemide (Lasix -) 20 mg PO DAILY [facility] Last Admin: 06/03/17 09:39 Dose: 20 mg Heparin Sodium (Porcine) (Heparin -) 5,000 unit SQ BID [facility] Last Admin: 06/03/17 09:40 Dose: 5,000 unit Lisinopril (Prinivil) 40 mg PO DAILY [facility] Last Admin: 06/03/17 09:40 Dose: 40 mg Pantoprazole Sodium (Protonix -) 40 mg PO DAILY [facility] Last Admin: 06/03/17 09:39 Dose: 40 mg Tramadol HCl (Ultram -) 50 mg PO Q6H PRN PRN Reason: PAIN LEVEL 4 - 6 Last Admin: 06/03/17 13:54 Dose: 50 mg - Objective Vital Signs: Vital Signs Temperature 98.7 F 06/03/17 10:00 Pulse Rate 64 06/03/17 10:00 Respiratory Rate 18 06/03/17 10:00 Blood Pressure 161/93 06/03/17 10:00 O2 Sat by Pulse Oximetry (%) 99 06/03/17 13:00 Constitutional: Yes: No Distress HENT: Yes: Atraumatic Neck: Yes: Supple Cardiovascular: Yes: Regular Rate and Rhythm Respiratory: Yes: CTA Bilaterally Gastrointestinal: Yes: Normal Bowel Sounds Extremities: Yes: WNL Edema: No Peripheral Pulses WNL: Yes Neurological: Yes: Alert, Oriented Labs: CBC, BMP 06/02/17 17:05 06/02/17 17:05 Problem List - Problems (1) Difficulty walking Assessment/Plan: pt eval pt for rehab placement Code(s): R26.2 - DIFFICULTY IN WALKING, NOT ELSEWHERE CLASSIFIED (2) Frequent falls Code(s): R29.6 - REPEATED FALLS (3) Anemia Assessment/Plan: fu labs workup per pmd as out pt Code(s): D64.9 - ANEMIA, UNSPECIFIED (4) Chronic kidney disease (CKD) Code(s): N18.9 - CHRONIC KIDNEY DISEASE, UNSPECIFIED (5) Diabetes mellitus Assessment/Plan: bgms monitor sugars Code(s): E11.9 - TYPE 2 DIABETES MELLITUS WITHOUT COMPLICATIONS Qualifiers: (6) HTN (hypertension) Assessment/Plan: on meds stable Code(s): I10 - ESSENTIAL (PRIMARY) HYPERTENSION Qualifiers:
--- NOTE | 2017-06-03 17:02 | PN ---
Progress Note (short form) - Note Progress Note: Pt seen and examined. She is an 86 yo F with a long stem right TKR prosthesis. She stumbled 2-3 days ago because of subjective instability of her right knee. Now she is feeling better. Still has some acute swelling and pain in the right knee. xrays Right knee with a long stem TKR prosthesis in good position. It is not broken. Prosthesis in a good position. No acute fractures. Nothing dislocated. PE Right knee is mildly swollen, small joint effusion. RLE is NVI. Good ROM at the right knee with mild discomfort. Imp 2-3 days s/p mild right knee sprain, now doing well. Rec She does not need any orthopedic surgery. P.T., WBAT Can DC from an orthopedic pov
[2017-06-04] MEDS: amLODIPine BESYLATE 10 MG TABLET (FP) PO SCH (09:12)
[2017-06-04] MEDS: HEPARIN NA (PORCINE) 5,000 UNITS/ML 1ML VIAL SQ SCH ×2 (09:12→21:46)
[2017-06-04] MEDS: LISINOPRIL 20 MG TABLET (FP) PO SCH (09:17)
[2017-06-04] MEDS: traMADol HCL 50 MG TABLET PO PRN ×2 (09:17→15:29)
[2017-06-04] MEDS: PANTOPRAZOLE 40 MG TABLET (FP) PO SCH (09:18)
[2017-06-04] MEDS: FUROSEMIDE 20 MG TABLET (FP) PO SCH (09:18)
[2017-06-04] MEDS: ASPIRIN 81 MG CHEWABLE TABLETS PO SCH (09:18)
--- NOTE | 2017-06-04 09:38 | PN ---
Progress Note, Physician History of Present Illness: doing well - Current Medication List Current Medications: Active Medications Amlodipine Besylate (Norvasc -) 10 mg PO DAILY [facility] Last Admin: 06/04/17 09:12 Dose: 10 mg Aspirin (Asa -) 81 mg PO DAILY [facility] Last Admin: 06/04/17 09:18 Dose: 81 mg Furosemide (Lasix -) 20 mg PO DAILY [facility] Last Admin: 06/04/17 09:18 Dose: 20 mg Heparin Sodium (Porcine) (Heparin -) 5,000 unit SQ BID [facility] Last Admin: 06/04/17 09:12 Dose: 5,000 unit Lisinopril (Prinivil) 40 mg PO DAILY [facility] Last Admin: 06/04/17 09:17 Dose: 40 mg Pantoprazole Sodium (Protonix -) 40 mg PO DAILY [facility] Last Admin: 06/04/17 09:18 Dose: 40 mg Tramadol HCl (Ultram -) 50 mg PO Q6H PRN PRN Reason: PAIN LEVEL 4 - 6 Last Admin: 06/04/17 09:17 Dose: 50 mg - Objective Vital Signs: Vital Signs Temperature 98.3 F 06/04/17 06:00 Pulse Rate 65 06/04/17 06:00 Respiratory Rate 20 06/04/17 06:00 Blood Pressure 142/67 06/04/17 06:00 O2 Sat by Pulse Oximetry (%) 98 06/03/17 21:00 Constitutional: Yes: No Distress HENT: Yes: Atraumatic Neck: Yes: Supple Cardiovascular: Yes: Regular Rate and Rhythm Respiratory: Yes: CTA Bilaterally Gastrointestinal: Yes: Normal Bowel Sounds Extremities: Yes: WNL Neurological: Yes: Alert, Oriented Labs: CBC, BMP 06/02/17 17:05 06/02/17 17:05 Problem List - Problems (1) Difficulty walking Assessment/Plan: pt eval pt for rehab placement Code(s): R26.2 - DIFFICULTY IN WALKING, NOT ELSEWHERE CLASSIFIED (2) Frequent falls Code(s): R29.6 - REPEATED FALLS (3) Anemia Assessment/Plan: fu labs workup per pmd as out pt Code(s): D64.9 - ANEMIA, UNSPECIFIED (4) Chronic kidney disease (CKD) Code(s): N18.9 - CHRONIC KIDNEY DISEASE, UNSPECIFIED (5) Diabetes mellitus Assessment/Plan: bgms monitor sugars Code(s): E11.9 - TYPE 2 DIABETES MELLITUS WITHOUT COMPLICATIONS Qualifiers: (6) HTN (hypertension) Assessment/Plan: on meds stable Code(s): I10 - ESSENTIAL (PRIMARY) HYPERTENSION Qualifiers:
[2017-06-04 10:32] LABS: BASO % 0.6 % (0-2.0); EOS % 3.6 % (0-4.5); HEMATOCRIT 26.4 % (32.4-45.2); HEMOGLOBIN 8.7 GM/dL (10.7-15.3); LYMPH % 17.8 % (8-40); MCH 29.3 pg (25.7-33.7); MEAN CELL VOLUME 88.9 fl (80-96); MEAN PLT VOLUME 8.2 fl (7.5-11.1); MONO % 10.9 % (3.8-10.2); NEUT % 67.1 % (42.8-82.8); PLATELET COUNT 139 K/MM3 (134-434); RBC 2.97 M/mm3 (3.60-5.2); RDW 15.9 % (11.6-15.6); WHITE BLOOD COUNT 5.2 K/mm3 (4.0-10.0)
[2017-06-04 10:54] LABS: ALBUMIN 2.9 g/dl (3.4-5.0); ANION GAP 8 (8-16); BILIRUBIN,TOTAL 0.5 mg/dL (0.2-1.0); BLOOD UREA NITROGEN 67 mg/dL (7-18); CALCIUM 7.7 mg/dL (8.5-10.1); CHLORIDE 108 mmol/L (98-107); CO2 22 mmol/L (21-32); CREATININE 2.3 mg/dL (0.55-1.02); GLUCOSE,RANDOM 142 mg/dL (74-106); POTASSIUM 4.7 mmol/L (3.5-5.1); SGOT/AST 5 U/L (15-37); SGPT/ALT < 6 U/L (12-78); SODIUM 138 mmol/L (136-145); TOT PROT 6.4 g/dl (6.4-8.2)
[2017-06-04 10:55] LABS: ALK PHOS 107 U/L (45-117)
[2017-06-04] MEDS: SODIUM CHLORIDE 1,000 ML IV SCH (12:45)
[2017-06-04] MEDS: DOCUSATE SODIUM 100 MG CAPSULE (FP) PO SCH (18:51)
[2017-06-05] MEDS: SODIUM CHLORIDE 1,000 ML IV SCH ×2 (01:21→15:41)
[2017-06-05] MEDS: traMADol HCL 50 MG TABLET PO PRN ×2 (08:02→14:35)
[2017-06-05 08:19] LABS: ALBUMIN 2.7 g/dl (3.4-5.0); ANION GAP 11 (8-16); BLOOD UREA NITROGEN 69 mg/dL (7-18); CALCIUM 7.9 mg/dL (8.5-10.1); CHLORIDE 107 mmol/L (98-107); CO2 22 mmol/L (21-32); GLUCOSE,RANDOM 68 mg/dL (74-106); SODIUM 140 mmol/L (136-145)
[2017-06-05 08:24] LABS: ALK PHOS 104 U/L (45-117); BILIRUBIN,TOTAL 0.2 mg/dL (0.2-1.0); CREATININE 2.3 mg/dL (0.55-1.02); SGOT/AST 7 U/L (15-37); SGPT/ALT 9 U/L (12-78); TOT PROT 6.4 g/dl (6.4-8.2)
--- NOTE | 2017-06-05 09:18 | PN ---
Progress Note (short form) - Note Progress Note: Ortho Pt seen and examined- feeling better Selected Entries 06/05/17 06:00 Temperature 98.9 F Pulse Rate 58 L Respiratory 18 Rate Blood Pressure 130/65 decr ttp, incr rom- 0-60, calf soft, nt nvi a/p PT dvt ppx pain control d/c to snf as per medicine
[2017-06-05] MEDS: ASPIRIN 81 MG CHEWABLE TABLETS PO SCH (09:29)
[2017-06-05] MEDS: HEPARIN NA (PORCINE) 5,000 UNITS/ML 1ML VIAL SQ SCH ×2 (09:29→21:42)
[2017-06-05] MEDS: DOCUSATE SODIUM 100 MG CAPSULE (FP) PO SCH (09:29)
[2017-06-05] MEDS: PANTOPRAZOLE 40 MG TABLET (FP) PO SCH (09:29)
[2017-06-05] MEDS: amLODIPine BESYLATE 10 MG TABLET (FP) PO SCH (09:29)
[2017-06-05] MEDS: LISINOPRIL 20 MG TABLET (FP) PO SCH (09:48)
--- NOTE | 2017-06-05 18:10 | PN ---
Progress Note, Physician History of Present Illness: doing well - Current Medication List Current Medications: Active Medications Amlodipine Besylate (Norvasc -) 10 mg PO DAILY [facility] Last Admin: 06/05/17 09:29 Dose: 10 mg Aspirin (Asa -) 81 mg PO DAILY [facility] Last Admin: 06/05/17 09:29 Dose: 81 mg Docusate Sodium (Colace -) 100 mg PO DAILY [facility] Last Admin: 06/05/17 09:29 Dose: 100 mg Heparin Sodium (Porcine) (Heparin -) 5,000 unit SQ BID [facility] Last Admin: 06/05/17 09:29 Dose: 5,000 unit Sodium Chloride (Normal Saline -) 1,000 mls @ 75 mls/hr IV ASDIR [facility] Last Admin: 06/05/17 15:41 Dose: 75 mls/hr Lisinopril (Prinivil) 40 mg PO DAILY [facility] Last Admin: 06/05/17 09:48 Dose: 40 mg Pantoprazole Sodium (Protonix -) 40 mg PO DAILY [facility] Last Admin: 06/05/17 09:29 Dose: 40 mg Tramadol HCl (Ultram -) 50 mg PO Q6H PRN PRN Reason: PAIN LEVEL 4 - 6 Last Admin: 06/05/17 14:35 Dose: 50 mg - Objective Vital Signs: Vital Signs Temperature 98.7 F 06/05/17 13:55 Pulse Rate 57 L 06/05/17 13:55 Respiratory Rate 18 06/05/17 13:55 Blood Pressure 124/56 06/05/17 13:55 O2 Sat by Pulse Oximetry (%) 98 06/05/17 13:00 Constitutional: Yes: No Distress HENT: Yes: Atraumatic Neck: Yes: Supple Cardiovascular: Yes: Regular Rate and Rhythm Respiratory: Yes: CTA Bilaterally Gastrointestinal: Yes: Normal Bowel Sounds Extremities: Yes: WNL Edema: No Peripheral Pulses WNL: Yes Neurological: Yes: Alert, Oriented Labs: CBC, BMP 06/04/17 09:45 06/05/17 07:00 Problem List - Problems (1) Difficulty walking Assessment/Plan: pt eval pt for rehab placement Code(s): R26.2 - DIFFICULTY IN WALKING, NOT ELSEWHERE CLASSIFIED (2) Frequent falls Code(s): R29.6 - REPEATED FALLS (3) Anemia Assessment/Plan: fu labs workup per pmd as out pt Code(s): D64.9 - ANEMIA, UNSPECIFIED (4) Chronic kidney disease (CKD) Code(s): N18.9 - CHRONIC KIDNEY DISEASE, UNSPECIFIED (5) Diabetes mellitus Assessment/Plan: bgms monitor sugars Code(s): E11.9 - TYPE 2 DIABETES MELLITUS WITHOUT COMPLICATIONS Qualifiers: (6) HTN (hypertension) Assessment/Plan: on meds stable Code(s): I10 - ESSENTIAL (PRIMARY) HYPERTENSION Qualifiers:
[2017-06-06] MEDS: amLODIPine BESYLATE 10 MG TABLET (FP) PO SCH (09:16)
[2017-06-06] MEDS: PANTOPRAZOLE 40 MG TABLET (FP) PO SCH (09:16)
[2017-06-06] MEDS: ASPIRIN 81 MG CHEWABLE TABLETS PO SCH (09:16)
[2017-06-06] MEDS: HEPARIN NA (PORCINE) 5,000 UNITS/ML 1ML VIAL SQ SCH ×2 (09:17→22:06)
[2017-06-06] MEDS: DOCUSATE SODIUM 100 MG CAPSULE (FP) PO SCH (09:17)
[2017-06-06] MEDS: LISINOPRIL 20 MG TABLET (FP) PO SCH (09:20)
--- NOTE | 2017-06-06 10:34 | PN ---
Progress Note (short form) - Note Progress Note: Ortho Pt seen and examined- feeling better. Was able to ambulate with PT with minimal discomfort decr ttp, incr rom- 0-60, calf soft, nt nvi a/p PT dvt ppx pain control d/c to snf as per medicine
[2017-06-06] MEDS ORDERED: traMADol HCL 50 MG TABLET PO PRN (10:47)
[2017-06-06] MEDS: SODIUM CHLORIDE 1,000 ML IV SCH ×2 (11:31→15:01)
--- NOTE | 2017-06-06 12:33 | DS ---
Physical Examination Vital Signs: Vital Signs Temperature 98.2 F 06/06/17 06:00 Pulse Rate 60 06/06/17 09:11 Respiratory Rate 20 06/06/17 09:11 Blood Pressure 145/75 06/06/17 09:11 O2 Sat by Pulse Oximetry (%) 98 06/06/17 05:00 Constitutional: Yes: No Distress HENT: Yes: Atraumatic Neck: Yes: Supple Cardiovascular: Yes: Regular Rate and Rhythm Respiratory: Yes: CTA Bilaterally Gastrointestinal: Yes: Normal Bowel Sounds Extremities: Yes: WNL Neurological: Yes: Alert, Oriented Labs: CBC, BMP 06/04/17 09:45 06/05/17 07:00 Discharge Summary Reason For Visit: DIFFICULTY WALKING Current Active Problems Difficulty walking (Acute) Frequent falls (Acute) Condition: Stable - Instructions Diet, Activity, Other Instructions: monitor bp and creatinine at rehab fu pmd hold lasix and lisinopril until seen by md at [facility] and cr improves Referrals: Anthony Davies [Primary Care Provider] - - Home Medications Comprehensive Discharge Medication List: Ambulatory Orders Amlodipine Besylate 10 mg PO DAILY 03/03/17 Aspirin [Crystal Chewable Aspirin] 81 mg PO DAILY 03/03/17 Furosemide 20 mg PO DAILY 03/03/17 Lisinopril [Prinivil -] 40 mg PO DAILY 03/03/17 Omeprazole 40 mg PO DAILY 03/03/17 Ranitidine [Zantac -] 150 mg PO BID 03/03/17 pts CR at her baseline hold lasix and lisino pril on norvas for bp can be dc to rehab monitor bp and cr at rehab
[2017-06-06] MEDS ORDERED: IBUPROFEN 400 MG TABLET (FP) PO PRN (19:59)
--- NOTE | 2017-06-06 20:01 | PN ---
Progress Note, Physician History of Present Illness: doing well - Current Medication List Current Medications: Active Medications Amlodipine Besylate (Norvasc -) 10 mg PO DAILY [facility] Last Admin: 06/06/17 09:16 Dose: 10 mg Aspirin (Asa -) 81 mg PO DAILY [facility] Last Admin: 06/06/17 09:16 Dose: 81 mg Docusate Sodium (Colace -) 100 mg PO DAILY [facility] Last Admin: 06/06/17 09:17 Dose: 100 mg Heparin Sodium (Porcine) (Heparin -) 5,000 unit SQ BID [facility] Last Admin: 06/06/17 09:17 Dose: 5,000 unit Sodium Chloride (Normal Saline -) 1,000 mls @ 75 mls/hr IV ASDIR [facility] Last Admin: 06/06/17 15:01 Dose: 75 mls/hr Pantoprazole Sodium (Protonix -) 40 mg PO DAILY [facility] Last Admin: 06/06/17 09:16 Dose: 40 mg Tramadol HCl (Ultram -) 50 mg PO Q6H PRN PRN Reason: PAIN LEVEL 4 - 6 Last Admin: 06/06/17 11:30 Dose: 50 mg - Objective Vital Signs: Vital Signs Temperature 98.2 F 06/06/17 18:00 Pulse Rate 65 06/06/17 18:00 Respiratory Rate 20 06/06/17 18:00 Blood Pressure 148/74 06/06/17 18:00 O2 Sat by Pulse Oximetry (%) 96 06/06/17 10:55 Constitutional: Yes: No Distress HENT: Yes: Atraumatic Neck: Yes: Supple Cardiovascular: Yes: Regular Rate and Rhythm Respiratory: Yes: CTA Bilaterally Gastrointestinal: Yes: Normal Bowel Sounds Extremities: Yes: WNL Neurological: Yes: Alert, Oriented Labs: CBC, BMP 06/04/17 09:45 06/05/17 07:00 Problem List - Problems (1) Difficulty walking Assessment/Plan: pt for rehab placement awaiting bed Code(s): R26.2 - DIFFICULTY IN WALKING, NOT ELSEWHERE CLASSIFIED (2) Frequent falls Code(s): R29.6 - REPEATED FALLS (3) Anemia Assessment/Plan: fu labs workup per pmd as out pt Code(s): D64.9 - ANEMIA, UNSPECIFIED (4) Chronic kidney disease (CKD) Code(s): N18.9 - CHRONIC KIDNEY DISEASE, UNSPECIFIED (5) Diabetes mellitus Assessment/Plan: bgms monitor sugars Code(s): E11.9 - TYPE 2 DIABETES MELLITUS WITHOUT COMPLICATIONS Qualifiers: (6) HTN (hypertension) Code(s): I10 - ESSENTIAL (PRIMARY) HYPERTENSION Qualifiers: Assessment/Plan awaiting bed at snf need some help to sleep
[2017-06-06] MEDS ORDERED: diphenhydrAMINE HCL 25 MG CAPSULE (FP) PO ONE (20:15)
[2017-06-07] MEDS: HEPARIN NA (PORCINE) 5,000 UNITS/ML 1ML VIAL SQ SCH (09:35)
[2017-06-07] MEDS: DOCUSATE SODIUM 100 MG CAPSULE (FP) PO SCH (09:35)
[2017-06-07] MEDS: amLODIPine BESYLATE 10 MG TABLET (FP) PO SCH (09:35)
[2017-06-07] MEDS: PANTOPRAZOLE 40 MG TABLET (FP) PO SCH (09:35)
[2017-06-07] MEDS: ASPIRIN 81 MG CHEWABLE TABLETS PO SCH (09:35)
[2017-06-07 15:22] VITALS: BP 132/67; PULSE 65; TEMP 98.8
== END 2017-06-07 15:47 ==
LOC: JER 11:51 → UNDOADMOB 18:06 → INTOOBSV 18:06 → JERBED 18:06 → J5S 21:50 → INTOOBSV 06-05 11:00 → OBSVTOIN 06-05 11:00
PROVIDERS: ADMIT Internal Medicine; ATTEND Internal Medicine
PROC: 3E013GC Introduction of Other Therapeutic Substance into Subcutaneous Tissue, Percutaneous Approach (ICD-10-PCS; principal; 2017-06-02)
PROC: 3E0337Z Introduction of Electrolytic and Water Balance Substance into Peripheral Vein, Percutaneous Approach (ICD-10-PCS; 2017-06-02)
DX: R26.2 Difficulty in walking, not elsewhere classified (principal); R29.6 Repeated falls; I12.9 Hypertensive chronic kidney disease with stage 1 through stage 4 chronic kidney disease, or unspecified chronic kidney disease; E11.22 Type 2 diabetes mellitus with diabetic chronic kidney disease; N18.9 Chronic kidney disease, unspecified; Z86.73 Personal history of transient ischemic attack (TIA), and cerebral infarction without residual deficits; E78.5 Hyperlipidemia, unspecified; J45.909 Unspecified asthma, uncomplicated; K21.9 Gastro-esophageal reflux disease without esophagitis; Z96.653 Presence of artificial knee joint, bilateral; Z79.82 Long term (current) use of aspirin; G62.9 Polyneuropathy, unspecified; I25.10 Atherosclerotic heart disease of native coronary artery without angina pectoris; E53.8 Deficiency of other specified B group vitamins; D64.9 Anemia, unspecified; S83.91XA Sprain of unspecified site of right knee, initial encounter; W18.39XA Other fall on same level, initial encounter; Z91.81 History of falling; Y93.89 Activity, other specified; Y92.009 Unspecified place in unspecified non-institutional (private) residence as the place of occurrence of the external cause
CPT/HCPCS: 36415; 70450-TC; 71045-TC-FY; 72125-TC; 73562-TC-RT-FY; 80053; 82962; 85025; 93005; 93010; 96372; 97116-GP; 97161-GP; 97163-GP; 99284-25; G0378; J1644